=== PATIENT | male | born 1935 | race Caucasian/White ===

== ENCOUNTER → 2019-02-09 14:16 | Outpatient (CLI) | payer MEDICARE, SELFPAY ==
--- NOTE | 2019-02-09 | DI.RAD.S_ITS ---
PROCEDURE: XR CHEST 2V INDICATIONS: COUGH TECHNIQUE: 2 views of the chest were acquired. COMPARISON: [facility], , CHEST 1 VIEW, 02/08/2012, 21:10. FINDINGS: Surgical changes and devices: Cardiac pacemaking device and dual chamber leads appear in normal position, in this patient with what appears to be prior thoracolumbar junction region compression fractures in relatively acute angulation in that area of prior bone cement.. Lungs and pleura: Lungs are clear. No pleural effusions or pneumothorax. Mediastinum: Mediastinal contours are normal. Heart size is normal. Bones and chest wall: No suspicious bony abnormalities. Soft tissues appear unremarkable. IMPRESSION: Apparent normal positioning of the cardiac pacemaking device with dual chamber leads. No source of cough is found but the patient positioning is prominently kyphotic centered at the thoracolumbar junction. Dictated by: Rogelio Rothman M.D. on 02/09/2019 at 15:35 Approved by: Rogelio Rothman M.D. on 02/09/2019 at 15:37
== END ==
PROVIDERS: PCP Internal Medicine; Visit Provider Internal Medicine
DX: R05 Cough (principal); Z95.0 Presence of cardiac pacemaker
CPT/HCPCS: 71046

== ENCOUNTER → 2019-02-21 15:36 | Outpatient (CLI) | payer MEDICARE, SELFPAY ==
[2019-02-21 16:24] LABS: B Type Natriuretic Peptide < 100 (<100)
[2019-02-21 16:46] LABS: Blood Urea Nitrogen 24 mg/dL (9-20); Calcium 9.2 mg/dL (8.4-10.2); Carbon Dioxide 30 mmol/L (22-32); Chloride 99 mmol/L (98-107); Estimated Glomerular Filt Rate > 60.0 mL/min (>60); Glucose 100 mg/dL (80-110); HEMOLYSIS 18 (0-50); Magnesium 2.1 mg/dL (1.6-2.3); Potassium 5.1 mmol/L (3.4-5.1); Sodium 139 mmol/L (137-145)
== END ==
PROVIDERS: Family Provider Internal Medicine; PCP Internal Medicine; Visit Provider Internal Medicine
DX: I50.9 Heart failure, unspecified (principal); I48.91 Unspecified atrial fibrillation; I48.0 Paroxysmal atrial fibrillation
CPT/HCPCS: 36415; 80048; 83735; 83880

== ENCOUNTER → 2019-04-03 11:48 | Outpatient (CLI) | payer MEDICARE, SELFPAY ==
[2019-04-03 12:14] LABS: Add Manual Diff / Slide Review NO; Basophils Absolute Auto 100 /uL (0-100); Basophils Percent Auto 0.6 % (0-2); Eosinophils Absolute Auto 100 /uL (0-450); Eosinophils Percent Auto 1.2 % (2-4); Hematocrit 44.7 % (41-53); Hemoglobin 14.9 g/dL (13.5-17.5); Lymphocytes Absolute Auto 700 /uL (1100-4500); Lymphocytes Percent Auto 7.4 % (25-40); Mean Corpuscular HGB Conc 33.2 % (30-36); Mean Corpuscular Hemoglobin 30.5 PG (26-34); Mean Corpuscular Volume 91.6 fL (80-100); Monocytes Absolute Auto 1400 /uL (0-900); Monocytes Percent Auto 13.5 % (3-14); Neutrophils Absolute Auto 7800 /uL (1500-7000); Neutrophils Percent Auto 77.3 % (50-75); Platelet Count 310 X10^3/uL (150-400); Red Blood Cell Count 4.88 X10^6/uL (4.5-5.9); Red Cell Distribution Width 14.1 % (11.6-14.8); White Blood Cell Count 10.1 X10^3/uL (4.5-11.0)
[2019-04-03 12:33] LABS: BUN Creatinine Ratio 19.1 (6-22); Blood Urea Nitrogen 21 mg/dL (9-20); Calcium 9.4 mg/dL (8.4-10.2); Carbon Dioxide 35 mmol/L (22-32); Chloride 95 mmol/L (98-107); Cholesterol 169 mg/dL (140-199); Estimated Glomerular Filt Rate > 60.0 mL/min (>60); Glucose 106 mg/dL (80-110); HDL Cholesterol 39 mg/dL (40-60); HEMOLYSIS < 15 (0-50); LDL Cholesterol Calculated 101 mg/dL (<100); Potassium 5.1 mmol/L (3.4-5.1); Sodium 138 mmol/L (137-145); Triglycerides 147 mg/dL (35-150)
== END ==
PROVIDERS: PCP Internal Medicine; Visit Provider Nurse Practitioner
DX: R06.02 Shortness of breath (principal); R04.0 Epistaxis; I10 Essential (primary) hypertension; I50.32 Chronic diastolic (congestive) heart failure; R06.1 Stridor
CPT/HCPCS: 36415; 80048; 80061; 85025

== ENCOUNTER → 2019-04-17 11:51 | Outpatient (CLI) | payer MEDICARE, SELFPAY ==
[2019-04-17 13:29] LABS: Alanine Aminotransferase 28 IU/L (21-72); Albumin 4.1 g/dL (3.5-5.0); Albumin Globulin Ratio 1.2 (1.0-2.8); Alkaline Phosphatase 98 U/L (38-126); Aspartate Aminotransferase 30 IU/L (17-59); BUN Creatinine Ratio 24.2 (6-22); Bilirubin Total 0.7 mg/dL (0.2-1.3); Blood Urea Nitrogen 29 mg/dL (9-20); Calcium 9.5 mg/dL (8.4-10.2); Carbon Dioxide 35 mmol/L (22-32); Chloride 95 mmol/L (98-107); Cholesterol 154 mg/dL (140-199); Globulin 3.5 g/dL (1.7-4.1); Glucose 99 mg/dL (80-110); HDL Cholesterol 34 mg/dL (40-60); HEMOLYSIS < 15 (0-50); LDL Cholesterol Calculated 86 mg/dL (<100); Sodium 139 mmol/L (137-145); Total Protein 7.6 g/dL (6.3-8.2); Triglycerides 171 mg/dL (35-150)
[2019-04-17 13:32] LABS: Potassium 5.7 mmol/L (3.4-5.1)
[2019-04-17 17:00] LABS: Thyroid Stimulating Hormone 2.14 uIU/mL (0.47-4.68)
== END ==
PROVIDERS: PCP Internal Medicine; Visit Provider Internal Medicine Cardiovascular Disease
DX: I10 Essential (primary) hypertension (principal); I70.90 Unspecified atherosclerosis
CPT/HCPCS: 36415; 80053; 80061; 84443

== ENCOUNTER → 2019-04-20 12:31 | Outpatient (CLI) | payer MEDICARE, SELFPAY ==
--- NOTE | 2019-04-27 16:02 | PM.PFT.1 ---
Pulmonary Function Test Referral & Results Date Patient Seen: 04/20/19 Requesting provider: Theron Lima Results: The spirometry demonstrates an FVC of 2.14 L which is 56% of predicted. The FEV1 was measured at 1.51 L which is 56% of predicted. The FEV1/FVC ratio was 70 which is 99% of predicted. Following the administration of bronchodilator there was a 49% improvement in FEF 25-75% Lung volumes show an SVC of 2.15 L which is 50% of predicted. The diffusing capacity was measured at 15.91 which is 51% of predicted. No hemoglobin value was provided, so no correction for potential anemia could be made, if appropriate. The maximum voluntary ventilation was reduced Interpretation: This study demonstrates moderate obstructive lung disease with some limited evidence of benefit following bronchodilator particularly small airway flow based on improvement in FEF 25-75% There is more significant restrictive lung disease present based on reduction SVC There is also significant reduction in diffusing capacity suggesting significant disease of the capillary alveolar level Clinical correlation suggested
== END ==
PROVIDERS: PCP Internal Medicine; Visit Provider Internal Medicine Cardiovascular Disease
DX: R06.02 Shortness of breath (principal); J98.8 Other specified respiratory disorders
CPT/HCPCS: 94060; 94726; 94729

== ENCOUNTER → 2019-04-23 11:51 | Outpatient (CLI) | payer MEDICARE, SELFPAY ==
[2019-04-23 13:03] LABS: BUN Creatinine Ratio 26.5 (6-22); Blood Urea Nitrogen 45 mg/dL (9-20); Calcium 9.6 mg/dL (8.4-10.2); Carbon Dioxide 33 mmol/L (22-32); Chloride 94 mmol/L (98-107); Estimated Glomerular Filt Rate 38.8 mL/min (>60); Glucose 85 mg/dL (80-110); HEMOLYSIS < 15 (0-50); Potassium 4.7 mmol/L (3.4-5.1); Sodium 137 mmol/L (137-145)
== END ==
PROVIDERS: Visit Provider Internal Medicine Cardiovascular Disease
DX: E87.6 Hypokalemia (principal)
CPT/HCPCS: 36415; 80048

== ENCOUNTER → 2019-05-01 11:18 | Outpatient (CLI) | payer MEDICARE, SELFPAY ==
[2019-05-01 14:16] LABS: BUN Creatinine Ratio 20.7 (6-22); Blood Urea Nitrogen 29 mg/dL (9-20); Calcium 10.2 mg/dL (8.4-10.2); Carbon Dioxide 32 mmol/L (22-32); Chloride 94 mmol/L (98-107); Estimated Glomerular Filt Rate 48.5 mL/min (>60); Glucose 92 mg/dL (80-110); HEMOLYSIS < 15 (0-50); Potassium 5.1 mmol/L (3.4-5.1); Sodium 137 mmol/L (137-145)
== END ==
PROVIDERS: Visit Provider Internal Medicine Cardiovascular Disease
DX: I10 Essential (primary) hypertension (principal)
CPT/HCPCS: 36415; 80048

== ENCOUNTER → 2019-05-21 13:36 | Outpatient (CLI) | payer MEDICARE, SELFPAY ==
--- NOTE | 2019-05-21 | DI.ECHO.S_ITS ---
[facility]---------+ [facility] +---------+ : : [address] : : : : [id number] : : : : Phone: [phone] Echocardiogram Report + + :Name: ROS STUART Study Date: 05/21/2019 Height: 70 in : :[facility] Location: [facility] Weight: 221 lb : : Gender: Male BSA: 2.2 m2 : :: 1935 Age: 84 yrs BP: 121/71 mmHg: :Reason For Study: SOB : :Ordering Physician: Theron : :Jomar Lima Performed By: Claire Page : + + Interpretation Summary The ejection fraction is estimated to be 50-55%. There are no obvious focal wall motion abnormalities noted but poor endocardial definition reduces the sensitivity for the detection of such. Left ventricular systolic function has significantly improved compared to the previous exam. There is no significant valvular heart disease. Procedure: A two-dimensional transthoracic echocardiogram with color flow and Doppler was performed. The study quality was technically difficult. Comparison is made with the echocardiogram of 03/09/2012. Definity was not used because the DI nurse was not able to start an IV on this patient. The patient had difficulty tolerating and participating in the exam. The patient has a paced rhythm. Left Ventricle: The left ventricle is normal in size. Left ventricular systolic function is probably normal. The ejection fraction is estimated to be 50-55%. Left ventricular systolic function has significantly improved compared to the previous exam. There are no obvious focal wall motion abnormalities noted but poor endocardial definition reduces the sensitivity for the detection of such. Diastolic function could not be accurately assessed due to paced rhythm. Right Ventricle: The right ventricle is not well visualized. The right ventricle is grossly normal size. There is a pacemaker lead in the right ventricle. Right ventricular systolic function is mildly reduced. Atria: The left atrial size is normal. The right atrium grossly appears normal in size. There is no Doppler evidence for an interatrial shunt. Mitral Valve: The mitral valve is normal in structure and function. There is trace mitral regurgitation. Aortic Valve: The aortic valve is trileaflet. The aortic valve opens well. There is trace aortic regurgitation. Tricuspid Valve: The tricuspid valve is normal in structure and function. There is mild tricuspid regurgitation. Pulmonary artery pressures cannot be estimated because of the lack of a measurable TR jet velocity. Pulmonic Valve: The pulmonic valve is not well visualized. There is trace pulmonic regurgitation. Great Vessels: The aortic root is mildly dilated. The ascending aorta could not be visualized. The pulmonary artery is not well visualized, but is probably normal size. The inferior vena cava was not visualized. Pericardium/ Pleura There is no pericardial effusion. There is no pleural effusion. MMode/2D Measurements & Calculations LVIDd: 5.2 cm LVOT diam: 2.1 cm LVIDs: 3.0 cm Ao root diam: 3.9 cm FS: 42.6 % asc Aorta Diam: 4.3 cm IVSd: 0.74 cm LVPWd: 0.82 cm LV ventura. diameter/BSA (cm/m^2): 2.4 LV sys. diameter/BSA (cm/m^2): 1.4 LA A2 area: 19.3 cm2 RA long axis: 5.1 cm LA A4 area: 24.2 cm2 RA area: 15.2 cm2 LA length (vol): 7.3 cm RA vol: 38.5 ml LA vol: 54.3 ml RA : 17.7 ml/m2 LA vol index: 24.9 ml/m2 Doppler Measurements & Calculations LVOT Max Beau: 85.5 cm/sec MV E max beau: 43.8 cm/sec LV V1 max P.9 mmHg MV A max beau: 68.0 cm/sec LV V1 VTI: 14.3 cm MV E/A: 0.65 Med Peak E' Beau: 4.6 cm/sec E/E' med: 9.4 Lat Peak E' Beau: 8.2 cm/sec E/E' lat: 5.4 E/e' average: 7.4 MV P1/2t: 90.1 msec TR max beau: 238.6 cm/sec MV P1/2t max beau: 43.8 cm/sec TR max P.8 mmHg MVA(P1/2t): 2.4 cm2 PA V2 max: 48.7 cm/sec PA V2 mean: 34.5 cm/sec PA mean P.52 mmHg PA Accel Time: 0.10 sec SV(LVOT): 51.3 ml Reading Physician:12:36 PM
--- NOTE | 2019-05-21 | DI.NM.S_ITS ---
PROCEDURE: NM FER PERF SPECT R&S PHARM Rest and pharmacological stress myocardial perfusion SPECT with gated imaging during rest and not stress and ejection fraction at rest RADIOPHARMACEUTICAL: 28.5 mCi Tc-99m tetrafosmin IV at rest and 24.6mCi Tc-99m tetrafosmin IV at peak effect of pharmacological stress. [id number] was performed. INDICATIONS: Shortness of breath TECHNIQUE: Radiopharmaceutical was injected at peak stress test, and also at rest. SPECT images were obtained. SPECT myocardial perfusion images were displayed in short axis, horizontal long axis, and vertical long axis views. Gated images were reviewed using uControl software, at rest only. COMPARISON: None. CARDIAC STRESS: A pharmacologic stress test was performed under the supervision of an attending staff, using an infusion of lexiscan . Hemodynamic data: There was no change in the heartrate with Lexiscan infusion. Symptoms: The patient denied anginal chest pain. Aminophylline: Not used. EKG: The EKG is nondiagnostic due to significant baseline artifact. FINDINGS: Raw data: There is good myocardial uptake of radiotracer. There is significant interfering subdiaphragmatic activity. No significant motion artifacts. However, the patient could not raise arms and images were obtained with arms on sides. Dguo-ex-rrmfn ratio is 0.31 (normal is less than 0.38 for tetrafosmin tracer). Left ventricle function: Gated images demonstrate normal left ventricular wall thickening at rest with interfering activity at basilar inferior wall. . Left ventricle resting end diastolic volume is 76 mL. Left ventricle rest ejection fraction is 63% ; normal range is above 45%. Myocardial perfusion: There is a moderate size, mild perfusion defect in the basal inferior wall, both at rest and with activity. Unfortunately prone imaging could not be performed to rule out artifact. This quantifies to be more severe by software with SSS of 3 and SRS of 0. Visually it's present on both similarly. IMPRESSION: -Equivocal, poor quality study, indicating small scar versus artifact. -Given normal baseline LVEF and the small territory in question, overall this is probably a low risk study. -No gated images could be performed on stress imaging. -There is significant interfering subdiaphragmatic activity. The effect of this cannot be compared between the rest and stress images as there was 6 days gap between the two phases of this test; moreover, no prone imaging could be performed to correct for artifact. -Other limitation including no change in heart rate with vasodilator infusion, patient's inability to move arms and baseline artifact on ECG which makes it uninterpretable as above. Dictated by: Fox Sousa M.D. on 05/28/2019 at 18:42 Approved by: Fox Sousa M.D. on 05/28/2019 at 18:54
--- NOTE | 2019-05-21 14:49 | P.PCN_ITS ---
Cardiac Stress Test Report Referral & Results Date Patient Seen: 05/21/19 Requesting provider: Theron Lima Indication: Shortness of breath Rest ECG: Unremarkable Procedure Note: After both written and verbal informed consent the patient had an IV started by the diagnostic imaging RN, and then was hooked up to the treadmill monitoring system. The Lexiscan material, and then the Cardiolite tracer, were administered sequentially. An additional 3 min was spent monitoring the patient while supine on the gurney. Patient reported some stinging and discomfort with the injection of the Lexiscan material as well as the Cardiolite tracer. There was concern that the IV may not be correctly placed and so only 1/2 of the dose of the Cardiolite was administered. Patient did not experience any symptoms at all or side effects to suggest the Lexiscan was administered. Careful examination of the antecubital site where his IV had been placed did not show any evidence of obvious extravasation of any material. The patient had a normal response to all infused materials. Patient will be placed under the gamma camera to see if there is any uptake from the cardiac mu scle or whether not he will have to repeat this portion of the test Impression: See above. Please see perfusion imaging report for further details Please note: Actual ECG tracings can be found in the PACS system.
--- NOTE | 2019-05-28 11:50 | PM.TREADMILL ---
Cardiac Stress Test Report Referral & Results Date Patient Seen: 05/28/19 Requesting provider: Theron Lima Indication: Shortness of breath Rest ECG: Unremarkable Procedure Note: After both written and verbal informed consent the patient had an IV started by the diagnostic imaging RN, and then was hooked up to the treadmill monitoring system. The Lexiscan material, and then the Cardiolite tracer, were administered sequentially. An additional 3 min was spent monitoring the patient while supine on the gurney. The patient had a normal response to all infused materials. Impression: See perfusion imaging report for details regarding possible ischemia Please note: Actual ECG tracings can be found in the PACS system.
== END ==
PROVIDERS: PCP Internal Medicine; Visit Provider Internal Medicine Cardiovascular Disease
DX: I07.1 Rheumatic tricuspid insufficiency (principal); R06.02 Shortness of breath; Z95.0 Presence of cardiac pacemaker
CPT/HCPCS: 78452; 93016; 93017; 93018; 93306; A9502; J2785

== ENCOUNTER → 2019-08-14 14:08 | Outpatient (CLI) | payer MEDICARE, SELFPAY ==
[2019-08-14 15:31] LABS: Alanine Aminotransferase 46 IU/L (<50); Albumin 3.9 g/dL (3.5-5.0); Albumin Globulin Ratio 1.1 (1.0-2.8); Alkaline Phosphatase 95 U/L (38-126); Aspartate Aminotransferase 42 IU/L (17-59); BUN Creatinine Ratio 15.6 (6-22); Bilirubin Total 0.5 mg/dL (0.2-1.3); Blood Urea Nitrogen 25 mg/dL (9-20); Calcium 9.4 mg/dL (8.4-10.2); Carbon Dioxide 32 mmol/L (22-32); Chloride 96 mmol/L (98-107); Estimated Glomerular Filt Rate 41.6 mL/min (>60); Globulin 3.5 g/dL (1.7-4.1); Glucose 91 mg/dL (80-110); HEMOLYSIS 30 (0-50); Potassium 4.9 mmol/L (3.4-5.1); Sodium 136 mmol/L (137-145); Total Protein 7.4 g/dL (6.3-8.2)
[2019-08-14 19:57] LABS: Thyroid Stimulating Hormone 1.55 uIU/mL (0.47-4.68)
== END ==
PROVIDERS: Visit Provider Internal Medicine Cardiovascular Disease
DX: Z79.899 Other long term (current) drug therapy (principal)
CPT/HCPCS: 36415; 80053; 84443

== ENCOUNTER → 2019-08-23 10:31 | Outpatient (CLI) | payer MEDICARE, SELFPAY ==
--- NOTE | 2019-08-31 16:29 | PM.PFT.1 ---
Pulmonary Function Test Referral & Results Date Patient Seen: 08/23/19 Requesting provider: Theron Lima Results: The spirometry demonstrates an FVC of 2.23 L which is 59% of predicted. The FEV1 was measured at 1.62 L which is 60% of predicted. The FEV1/FVC ratio was 72 which is 101% of predicted. Following the administration of bronchodilator there was a 25% improvement in FEF 25-75%. Lung volumes show an SVC of 2.16 L which is 51% of predicted. The diffusing capacity was measured at 17.17 which is 55% of predicted. No hemoglobin value was provided, so no correction for potential anemia could be made, if appropriate. The maximum voluntary ventilation was reduced Interpretation: This study demonstrates moderate obstructive lung disease based on reduction FEV1 and there is some limited evidence of benefit following bronchodilator particularly small airway flow based on improvement in FEF 25-75% There is also moderate restrictive lung disease present based on reduction SVC There is also moderate reduction in diffusing capacity suggesting disease at the capillary alveolar level Compared to PFTs performed in April 2019, current spirometry is essentially unchanged as is diffusing capacity
== END ==
PROVIDERS: PCP Internal Medicine; Referring Provider Internal Medicine; Visit Provider Internal Medicine Cardiovascular Disease
DX: R06.02 Shortness of breath (principal); J98.8 Other specified respiratory disorders
CPT/HCPCS: 94060; 94726; 94729

== ENCOUNTER → 2019-09-04 13:34 | Outpatient (CLI) | payer MEDICARE, SELFPAY | PROVIDERS: PCP Internal Medicine; Referring Provider Internal Medicine; Visit Provider Internal Medicine | DX: M81.0 Age-related osteoporosis without current pathological fracture (principal) | CPT/HCPCS: 77080 ==

== ENCOUNTER 2019-09-08 23:09 | Inpatient (IN) | payer MEDICARE, SELFPAY ==
[2019-09-08 23:25] VITALS: BP 139/76; PULSE 76; RESP 22; TEMP 36.3; O2SAT 92; BMI 31.5
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
--- NOTE | 2019-09-08 23:50 | DI.RAD.S_ITS ---
PROCEDURE: XR CHEST 1V INDICATIONS: abdominal pain TECHNIQUE: One view of the chest was acquired. COMPARISON: [facility], CT, CT ABDOMEN PELVIS WO CON, 09/09/2019, 1:00. [facility], CR, XR CHEST 2V, 02/09/2019, 14:19. FINDINGS: Surgical changes and devices: There is a cardiac pacemaker.. Lungs and pleura: The patient atelectasis. No pleural effusions or pneumothorax. Mediastinum: Mediastinal contours appear normal. Heart size is normal. Bones and chest wall: No suspicious bony lesions. Overlying soft tissues appear unremarkable. Kyphoplasties. IMPRESSION: No acute cardiopulmonary disease. Dictated by: Michelle Noble M.D. on 09/09/2019 at 6:39 Approved by: Michelle Noble M.D. on 09/09/2019 at 6:41
--- NOTE | 2019-09-08 23:50 | DI.RAD.S_ITS ---
PROCEDURE: XR ABDOMEN 1V INDICATIONS: no BM for a week TECHNIQUE: One view of the abdomen acquired. COMPARISON: [facility], CR, XR CHEST 1V, 09/08/2019, 23:57. [facility], CR, CHEST 1 VIEW, 02/08/2012, 21:10. FINDINGS: Surgical changes and devices: None. Bowel: Moderate amount of stool in colon. There is abundant colonic gas. Soft tissues: No suspicious abdominal calcifications. Visualized solid organ contours appear normal in size. Bones: Ultiple compression fractures and kyphoplasties. Severe osteopenia. IMPRESSION: Nonobstructive bowel gas pattern. Moderate amount of stool in colon. Dictated by: Michelle Noble M.D. on 09/09/2019 at 6:41 Approved by: Michelle Noble M.D. on 09/09/2019 at 6:45
[2019-09-09] VITALS (17 sets, daily range): BP systolic 98–146; BP diastolic 50–72; PULSE 59–88; RESP 16–30; TEMP 36.9–37.5; O2SAT 90–95; BMI 31.5
--- NOTE | 2019-09-09 | DI.RAD.S_ITS ---
PROCEDURE: XR THORACIC SPINE 3V INDICATIONS: T-10 FRACTURE TECHNIQUE: 3 views of the thoracic spine were acquired. COMPARISON: [facility], CT, CT THORACIC SPINE WO [facility], 09/09/2019, 14:13. [facility], CT, CT ABDOMEN PELVIS WO [facility], 09/09/2019, 1:00. FINDINGS: Bones: Motion artifact on the lateral view limits evaluation of the bones. However, there does appear to be a fracture along the anterior margin of the T10 vertebral body and with splaying of the anterior portion of the vertebral body. Multiple compression deformities of the imaged thoracolumbar spine are present. There are kyphoplasty/vertebroplasty changes present. Soft tissues: No paravertebral stripe thickening. IMPRESSION: Unusual fracture of the T10 vertebral body. A pathologic fracture is difficult to exclude. Dictated by: Yovani Motta M.D. on 09/09/2019 at 14:14 Approved by: Yovani Motta M.D. on 09/09/2019 at 14:16
[2019-09-09 00:01] LABS: Add Manual Diff / Slide Review NO; Basophils Absolute Auto 0 /uL (0-100); Basophils Percent Auto 0.2 % (0-2); Eosinophils Absolute Auto 0 /uL (0-450); Hematocrit 44.2 % (41-53); Hemoglobin 14.7 g/dL (13.5-17.5); Lymphocytes Absolute Auto 300 /uL (1100-4500); Lymphocytes Percent Auto 1.6 % (25-40); Mean Corpuscular HGB Conc 33.2 % (30-36); Mean Corpuscular Hemoglobin 31.3 PG (26-34); Mean Corpuscular Volume 94.3 fL (80-100); Monocytes Absolute Auto 1700 /uL (0-900); Monocytes Percent Auto 9.1 % (3-14); Neutrophils Absolute Auto 16800 /uL (1500-7000); Neutrophils Percent Auto 89.1 % (50-75); Platelet Count 238 X10^3/uL (150-400); Red Blood Cell Count 4.69 X10^6/uL (4.5-5.9); Red Cell Distribution Width 14.3 % (11.6-14.8); White Blood Cell Count 18.8 X10^3/uL (4.5-11.0)
[2019-09-09 00:06] LABS: Alanine Aminotransferase 26 IU/L (<50); Albumin 4.3 g/dL (3.5-5.0); Albumin Globulin Ratio 1.2 (1.0-2.8); Alkaline Phosphatase 106 U/L (38-126); Aspartate Aminotransferase 35 IU/L (17-59); BUN Creatinine Ratio 22.9 (6-22); Bilirubin Total 1.4 mg/dL (0.2-1.3); Blood Urea Nitrogen 32 mg/dL (9-20); Calcium 9.9 mg/dL (8.4-10.2); Carbon Dioxide 30 mmol/L (22-32); Chloride 95 mmol/L (98-107); Estimated Glomerular Filt Rate 48.5 mL/min (>60); Globulin 3.7 g/dL (1.7-4.1); Glucose 127 mg/dL (80-110); HEMOLYSIS 18 (0-50); Lipase 35 U/L (23-300); Sodium 134 mmol/L (137-145)
[2019-09-09 00:15] LABS: NT-proBNP (BNP-Adult 18+) 454 pg/mL (<450)
[2019-09-09 00:18] LABS: Troponin I < 0.012 ng/mL (0.01-0.034)
--- NOTE | 2019-09-09 00:50 | DI.CT.S_ITS ---
PROCEDURE: CT ABDOMEN PELVIS WO CON INDICATIONS: pain/distention/leukocytosis. GFR=48 TECHNIQUE: Noncontrast 5 mm thick sections acquired from the diaphragms to the symphysis. 5 mm coronal and sagittal reformats were then performed. For radiation dose reduction, the following was used: automated exposure control, adjustment of mA and/or kV according to patient size. COMPARISON: [facility], MR, L-SPINE WITH AND WITHOUT CONTR, 01/20/2012, 7:59. [facility], CR, L-SPINE 2-3 VIEWS, 02/09/2012, 16:35. [facility], CT, PE STUDY (CTA CHEST), 02/08/2012, 22:36. [facility], CR, XR CHEST 1V, 09/08/2019, 23:57. [facility], CR, XR ABDOMEN 1V, 09/08/2019, 23:57. FINDINGS: Image quality: Excellent. ABDOMEN: Lung bases: Bibasilar atelectasis. Heart size is mildly increased. There is a cardiac pacemaker. There is a cardiac pacemaker. Fat stranding around the descending aorta and aortic hiatus. Solid organs: There is a 1 cm cyst in the left hepatic lobe. Liver is normal in size. Gallbladder contains gallstones. There is subtle stranding of the gallbladder. Pancreas is normal in contours. Spleen is normal in size. No adrenal nodules. Kidneys are normal in size, without hydronephrosis or nephrolithiasis. There is a 6.3 cm parapelvic cyst in left kidney. Peritoneum and bowel: There numerous colonic diverticula. No CT findings to suggest acute diverticulitis. Unenhanced bowel loops demonstrate normal wall thickness and caliber. No free fluid or air. Nodes and vessels: No retroperitoneal or mesenteric adenopathy by size criteria. Aorta and inferior vena cava are normal in caliber. Miscellaneous: No ventral hernias. PELVIS: Genitourinary: Bladder wall thickness is normal. Small bladder diverticula are present. There is mild bladder wall thickening. Small bladder calculi independent bladder lumen. Enlarged prostate. Miscellaneous: No inguinal adenopathy. There is a fat-containing right inguinal hernia. Bones: Vertebral fracture at T10 may be acute. There are multiple chronic vertebral body compression fractures, severe at T7, T12, L1, and L5, moderate or mild at multiple other levels. Kyphoplasty at L1 and L5. Severe osteopenia. Severe degenerative disc and facet disease causing Central Canal stenosis. IMPRESSION: 1. Gallbladder contains gallstones. There is subtle stranding of the gallbladder suggesting early acute cholecystitis. 2. Small bladder calculi independent bladder lumen. There is mild bladder wall thickening, which may be secondary to cystitis or bladder outlet obstruction. 3. Scattered diverticula. 4. Enlarged prostate. 5. Suscept acute fracture of T10. There is prevertebral soft tissue stranding in the level of aortic hiatus. A small amount of fluid in the area is most likely a hematoma. 6. Multiple mid compression fractures as described. Dictated by: Michelle Noble M.D. on 09/09/2019 at 6:08 Transcribed by: ARTEMIO on 09/09/2019 at 6:28 Approved by: Michelle Noble M.D. on 09/09/2019 at 6:38
[2019-09-09] MEDS: ONDANSETRON 4 MG/2 ML INJ IV (01:21)
[2019-09-09] MEDS: SODIUM CHLORIDE 0.9% 1,000 ML 1000 ML IV (01:21)
[2019-09-09] MEDS: HYDROMORPHONE 1 MG INJ IV (01:21)
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
[2019-09-09 04:32] LABS: Appearance Urine UA CLEAR; Bilirubin Urine UA NEGATIVE (NEGATIVE); Glucose Urine UA NEGATIVE (Negative); Ketones Urine UA NEGATIVE (NEGATIVE); Leukocyte Esterase Urine UA TRACE (NEGATIVE); Nitrite Urine UA NEGATIVE (Negative); Occult Blood Urine UA NEGATIVE (Negative); Protein Urine UA TRACE (Negative); Urobilinogen Urine UA 0.2 E.U./dL (0.2)
[2019-09-09 04:33] LABS: Color Urine UA Dark Yellow; RBC Urine 0-1/HPF (0-5/HPF); Squamous Epithelial Cell Urine 0-1 /HPF (0-5/HPF); WBC Urine 0-1/HPF (0-5/HPF)
[2019-09-09 04:34] LABS: Bacteria Urine Few (2-10); Culture Indicated Urine Specimen Cultured; Hyaline Casts Urine 5-10/LPF; Mucus Urine 1+ (Negative)
[2019-09-09 04:45] LABS: Magnesium 2.1 mg/dL (1.6-2.3)
[2019-09-09 05:03] LABS: Procalcitonin 0.06 ng/mL (<0.5)
[2019-09-09] MEDS: SODIUM CHLORIDE 0.9% 1,000 ML 125 ML IV ×2 (05:15→12:20)
[2019-09-09] MEDS: FLEETS ENEMA 1 EACH PR (05:30)
[2019-09-09] MEDS: HYDROMORPHONE 1 MG INJ 0.5 MG IV (05:43)
--- NOTE | 2019-09-09 06:24 | PC.NURSE ---
99 kg was ED WEIGHT WITH ZEROED BED NEW WEIGHT 96.2
--- NOTE | 2019-09-09 06:34 | PC.NURSE ---
Pt admitted to unit around 044 as Alert and Oriented x2; thought the year was 1999 but knew who the president was and all other neuro questions. He appears forgetful as well, and hard to grab his attention 84% on Room air, SOB/DOSS; placed on 2L NC at 99%; lungs clear Belly is distended, firm, tender. Active bowel tones, pt reports passing gas. He was admitted to floor with a small/smear soft brown BM. 0.5mg IV Dilaudid given for sharp RUQ pain that he somes comes and goes in spurts but feels like a knife burning him when it comes. Incontinent of urine, peed in brief. Enema given this morning with no results. Got patient on a BSC which i would not suggest doing again until pt is stronger bc he did not do well getting to commode at all. He says at home he has a FWW and cane that he doesn't use enough. Skin is okay, scattered bruises and abrasions throughout. Bandaid from fall on left knee and right wrist. Scar on abdomen. Lots of varicose veins on arms. B/L SCDs placed on Tele: AFib
[2019-09-09] MEDS: ACETAMINOPHEN 325 MG TABLET 975 MG PO ×3 (06:49→21:00)
--- NOTE | 2019-09-09 09:03 | PC.NURSE ---
Addendum entered by Belgica Rogers R.N. 09/09/19 14:08: Pt's Radha took back pt's home medications listed prior. All 5 bottles of meds. Addendum entered by Belgica Rogers R.N. 09/09/19 12:23: Pt was placed on Oximask by RT this AM, switched to 5L NC at 1220 so pt can eat lunch. O2 sat 92%. Addendum entered by Belgica Rogers R.N. 09/09/19 12:05: Pt OOB with PT-2P max assist OOB to chair, chair alarm on. Pt inc small amount of urine, had moderate formed hard ball brown BM with 3 small pebble like. few drops of blood noted in BSC, upon wiping had one episode of blood on wipe. Barrier cream applied. Pt's Radha in room as well. Addendum entered by Belgica Rogers R.N. 09/09/19 11:29: Per Dr. Ivy and Dr. Triplett at 1125, discontinue Xarelto. Dr's aware this RN held this morning awaiting for Ortho consult. Therefore Xarelto was not given today. Addendum entered by Belgica Rogers R.N. 09/09/19 09:14: RN Coordinator Mack, retrieved pt's belongings from ED including a cell phone and churner that is placed in pt's room. 5 med bottles of Xarelto, Atvorstatin, Lisinopril, Metoprolol, Amiodarone send to pharmacy until pt discharges. Original Note: Day Shift- 1 tablet marked Tylenol 325/Hospital found by [employer] on pt's chest on gown. Pt did receive Scheduled Tylenol dose this AM. RT in to see pt, Pt mouth breaths, O2 NC placed in mouth, O2 NC to 4L, O2 sat 94-95%. On continuous O2 monitoring. High fall risk precautions in place, bed alarm on. BLE Calf SCD's on.
[2019-09-09] MEDS: BISACODYL 10 MG SUPP PR (09:35)
[2019-09-09] MEDS: METOPROLOL ER 50 MG TABLET PO (09:46)
[2019-09-09] MEDS: AMIODARONE 200 MG TABLET PO (09:46)
[2019-09-09] MEDS: ATORVASTATIN 20 MG TABLET PO (09:46)
--- NOTE | 2019-09-09 10:36 | RT ---
Placed the patient on an oxymask. He was desaturating on 4-5 L via nasal cannula because he was mouth breathing. Once placed on the oxymask at 5L the patient's saturations improved to 92%.
--- NOTE | 2019-09-09 12:11 | DI.CT.S_ITS ---
PROCEDURE: CT THORACIC SPINE WO CON INDICATIONS: T10 fracture TECHNIQUE: Noncontrast 3 mm thick sections acquired through the region of interest in the thoracic spine. Sagittal and coronal reformats were then constructed. For radiation dose reduction, the following was used: automated exposure control. COMPARISON: [facility], CT, CT ABDOMEN PELVIS WO CON, 09/09/2019, 1:00. [facility], CR, XR CHEST 2V, 02/09/2019, 14:19. [facility] [place], CR, SPINE THORACOLUMBAR 2VW, 03/27/2014, 15:45. FINDINGS: Image quality: Diagnostic. Bones: Straightening of the normal lumbar lordosis is identified. A fracture involving the T10 vertebral body is identified in along the anterior margin of the vertebral body with associated widening at the anterior fracture line. No definite retropulsion is identified. Soft tissue attenuation at the fracture site is evident within the bone, which may represent hematoma. Kyphoplasty/vertebroplasty changes are noted involving the T3, T4, T6, and L1 vertebral bodies. Prominent anterior wedging is evident involving the T7 vertebral body with approximately 60% anterior vertebral height loss. A similar appearance is noted involving the T12 vertebral body with approximately 80% anterior vertebral height loss. Alignment is unchanged since the prior CT. Soft tissues: No paravertebral masses or hematomas. Visualized posteromedial lungs appear clear. Small bilateral effusions are present. There is aortic atherosclerosis. Low attenuation lesion within the region of the caudate lobe of the liver is present. There is also probable cyst involving the intra-margin of the left kidney. IMPRESSION: 1. Age indeterminate irregular fracture involving the T10 vertebral body with associated anterior vertebral widening without significant retropulsion. A pathologic fracture cannot be excluded. 2. No additional acute fractures are appreciated. 3. Vertebral plasty/kyphoplasty changes are present at multiple levels involving the thoracic and lumbar spine. Dictated by: Yovani Motta M.D. on 09/09/2019 at 13:35 Approved by: Yovani Motta M.D. on 09/09/2019 at 13:41
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
[2019-09-09 12:15] LABS: Add Manual Diff / Slide Review NO; Basophils Absolute Auto 100 /uL (0-100); Basophils Percent Auto 0.4 % (0-2); Eosinophils Absolute Auto 0 /uL (0-450); Hematocrit 40.6 % (41-53); Hemoglobin 13.5 g/dL (13.5-17.5); Lymphocytes Absolute Auto 500 /uL (1100-4500); Lymphocytes Percent Auto 3.2 % (25-40); Mean Corpuscular HGB Conc 33.2 % (30-36); Mean Corpuscular Hemoglobin 31.7 PG (26-34); Mean Corpuscular Volume 95.7 fL (80-100); Monocytes Absolute Auto 2300 /uL (0-900); Monocytes Percent Auto 14.1 % (3-14); Neutrophils Absolute Auto 13500 /uL (1500-7000); Neutrophils Percent Auto 82.3 % (50-75); Platelet Count 192 X10^3/uL (150-400); Red Blood Cell Count 4.25 X10^6/uL (4.5-5.9); Red Cell Distribution Width 14.7 % (11.6-14.8); White Blood Cell Count 16.4 X10^3/uL (4.5-11.0)
[2019-09-09 12:25] LABS: BUN Creatinine Ratio 25.4 (6-22); Blood Urea Nitrogen 33 mg/dL (9-20); Calcium 8.8 mg/dL (8.4-10.2); Carbon Dioxide 28 mmol/L (22-32); Chloride 99 mmol/L (98-107); Estimated Glomerular Filt Rate 52.9 mL/min (>60); Glucose 128 mg/dL (80-110); HEMOLYSIS < 15 (0-50); Potassium 4.7 mmol/L (3.4-5.1); Sodium 134 mmol/L (137-145)
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
--- NOTE | 2019-09-09 15:21 | CM.DANOTE ---
Discharge Planning/Care Management DCP: assessment: case received, EMR reviewed and met with pt. Introduced self and role. 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 Pt appeared very uncomfortable. Pt is an 84 year old who admitted early this morning to care of hospitalist team. Admission status: INPT: confirmed by UR RN Fabián Payer: Medicare [facility] PCP: Dr. Dru Chinchilla. Pt admitted with T10 compression fracture, reportedly occurring during DEXA scan on 09/06. He has had severe pain, marked decline in his functional mobility and inability to have BM since that time. PT did see pt today and OT order is obtained. PT recomendation is snf rehab vs home 07/02 assist and HH. Pt says he is certain he will need rehab after the hospital stay. Snf choice list: discussed: Pt has been at [facility]now [facility] and wishes referral place. Referral given to weekend liaison, face sheet efaxed to [facility] and Josette will be on tomorrow to review and confirm acceptance. P: as this point: [facility] CR: 09/12 or > PASRR will be needed. CM Discharge Assessment Start: 09/09/19 15:18 Freq: Status: Active Protocol: Document 09/09/19 15:18 ITV (Rec: 09/09/19 15:21 ITV [id number]) Discharge Planning Assessment Advance Directives? Yes History Provided By Patient,Medical Record Prior Living Arrangements House Household Members spouse Independent with ADL's No Is patient alert and oriented? Yes Patient/Family Preference [facility] Facility White board Updated in Patient Room with Yes name and ext. 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
--- NOTE | 2019-09-09 17:36 | PM.PN.1 ---
Subjective Subjective Date Patient Seen: 09/09/19 Exam Vital Signs (past 8 hours): - 09/09/19 23:00 09/10/19 00:05 09/10/19 04:42 Temperature 98.9 F 99.7 F H Pulse Rate 59 L 61 Respiratory Rate 16 18 Blood Pressure 127/65 143/74 H Pulse Oximetry 92 94 Oxygen Delivery Method Nasal Cannula Oxygen Flow Rate 5 Objective Labs Result Diagrams: 09/10/19 05:11 09/09/19 12:05 Labs: Laboratory Results - last 24 hr 09/09/19 09/09/19 09/10/19 12:05 12:05 05:11 WBC 16.4 H 14.7 H RBC 4.25 L 4.03 L Hgb 13.5 12.6 L Hct 40.6 L 39.0 L MCV 95.7 96.7 MCH 31.7 31.3 MCHC 33.2 32.4 RDW 14.7 14.3 Plt Count 192 171 Neut % (Auto) 82.3 H 82.9 H Lymph % (Auto) 3.2 L 3.2 L [place] % (Auto) 14.1 H 13.9 Eos % (Auto) 0.0 L 0.0 L Baso % (Auto) 0.4 0.0 Neut # (Auto) 65536 H 59255 H Lymph # (Auto) 500 L 500 L [place] # (Auto) 2300 H 2000 H Eos # (Auto) 0 0 Baso # (Auto) 100 0 Sodium 134 L Potassium 4.7 Chloride 99 Carbon Dioxide 28 BUN 33 H Creatinine 1.30 H Estimated GFR 52.9 L BUN/Creatinine Ratio 25.4 H Glucose 128 H Calcium 8.8 Assessment & Plan Assessment & Plan narrative: Brief progress note: The patient was seen and examined. Physical exam unchanged other than abdominal pain resolved and back pain controlled. Patient has had a large bowel movement since suppository and abdominal pain has resolved. Plan for small-bowel follow-through tomorrow. Patient's back pain is well controlled. Orthopedic surgery following and may consider kyphoplasty. Agree with admitting providers assessment and plan.
[2019-09-09] MEDS: NYSTATIN POWDER 15GM 1 APPLIC TOP (20:49)
[2019-09-10] VITALS (12 sets, daily range): BP systolic 109–155; BP diastolic 46–76; PULSE 61–81; RESP 18–22; TEMP 36.5–37.6; O2SAT 92–98; BMI 30.7
--- NOTE | 2019-09-10 | DI.RAD.S_ITS ---
PROCEDURE: XR T AND L SPINE 2 TO 3 VIEWS INDICATIONS: T7-L2 TLIF TECHNIQUE: 2 views acquired of the thoracolumbar spine. COMPARISON: [facility], CT, CT THORACIC SPINE WO CON, 09/09/2019, 14:13. [facility], CR, XR THORACIC SPINE 3V, 09/09/2019, 12:36. FINDINGS: Bones: Immediate postoperative examination with reference to prior CT scanning 09/09/19. There is vertebral body bone cement superiorly within T4 and T5, and bilateral vertical fixation rods with transverse pedicle screws have been placed at multiple levels along the thoracic spine and extending into the lumbar spine. Transverse pedicle screws are seen at T8, T9, T10, and T11. These are bilateral, and there is a gap at T12 where on prior CT scanning an anterior horizontal fracture through the T12 can be seen. The current study shows what appears to be bone cement material in that area, and reduction of the prior focal lordosis associated with the distracted anterior fracture margin. A final transverse pedicle screws at his present at L1. Soft tissues: No suspicious soft tissue calcifications. IMPRESSION: Reduction of lordosis has successfully been accomplished in an area of a horizontal fracture through T11, now brought into apposition with resolution of the lordosis by placement of multiple transverse pedicle screws and 2 bilateral thoracic/lumbosacral fixation rods. Bone cement is newly visualized within the T12 anterior fracture area. Prior bone cement more superiorly at T4, T5, and T7 is again seen. Dictated by: Rogelio Rothman M.D. on 09/11/2019 at 10:12 Approved by: Rogelio Rothman M.D. on 09/11/2019 at 10:24
[2019-09-10] MEDS: ACETAMINOPHEN 325 MG TABLET 975 MG PO (05:31)
--- NOTE | 2019-09-10 05:53 | PC.NURSE ---
Pt. confused, restless pain level 8-10/10 medicated with 975 mg. of Tylenol PO. Requested IV pain med. NAIMA Mercado notified ordered to give him Oxycodone per order. Did not sleep well last night, will monitor.
[2019-09-10] MEDS: OXYCODONE IR 5 MG TABLET PO (06:04)
[2019-09-10 06:10] LABS: Add Manual Diff / Slide Review NO; Basophils Absolute Auto 0 /uL (0-100); Eosinophils Absolute Auto 0 /uL (0-450); Hemoglobin 12.6 g/dL (13.5-17.5); Lymphocytes Absolute Auto 500 /uL (1100-4500); Lymphocytes Percent Auto 3.2 % (25-40); Mean Corpuscular HGB Conc 32.4 % (30-36); Mean Corpuscular Hemoglobin 31.3 PG (26-34); Mean Corpuscular Volume 96.7 fL (80-100); Monocytes Absolute Auto 2000 /uL (0-900); Monocytes Percent Auto 13.9 % (3-14); Neutrophils Absolute Auto 12200 /uL (1500-7000); Neutrophils Percent Auto 82.9 % (50-75); Platelet Count 171 X10^3/uL (150-400); Red Blood Cell Count 4.03 X10^6/uL (4.5-5.9); Red Cell Distribution Width 14.3 % (11.6-14.8); White Blood Cell Count 14.7 X10^3/uL (4.5-11.0)
[2019-09-10 06:22] LABS: Blood Urea Nitrogen 22 mg/dL (9-20); Calcium 8.5 mg/dL (8.4-10.2); Carbon Dioxide 30 mmol/L (22-32); Chloride 101 mmol/L (98-107); Estimated Glomerular Filt Rate > 60.0 mL/min (>60); Glucose 105 mg/dL (80-110); HEMOLYSIS < 15 (0-50); Magnesium 2.2 mg/dL (1.6-2.3); Potassium 4.2 mmol/L (3.4-5.1); Sodium 135 mmol/L (137-145)
[2019-09-10] MEDS: ATORVASTATIN 20 MG TABLET PO (09:18)
[2019-09-10] MEDS: METOPROLOL ER 50 MG TABLET PO (09:18)
[2019-09-10] MEDS: AMIODARONE 200 MG TABLET PO (09:19)
[2019-09-10] MEDS: ALBUTEROL 2.5 MG/3 ML NEB (ADULT) INH (09:24)
[2019-09-10] MEDS: SODIUM CHLORIDE 0.9% FLUSH 10 ML IV (09:25)
--- NOTE | 2019-09-10 09:27 | PC.NURSE ---
Patient oriented to self and situation at time, forgetful at times, easily reorients. Patient with wheezes throughout. Sats on 4L 92-94% patient short of breath. RT called and given treatment. at bedside. Bed alarm on.
[2019-09-10] MEDS: BISACODYL 10 MG SUPP PR (09:36)
[2019-09-10] MEDS: NYSTATIN POWDER 15GM 1 APPLIC TOP (09:37)
--- NOTE | 2019-09-10 10:07 | DI.RAD.S_ITS ---
PROCEDURE: XR CHEST 1V INDICATIONS: shortness of breath TECHNIQUE: One view of the chest was acquired. COMPARISON: [facility], CR, XR CHEST 1V, 09/08/2019, 23:57. FINDINGS: Surgical changes and devices: Pacemaker. Lungs and pleura: Developing pulmonary edema, development of small bilateral pleural effusions and left basilar atelectasis. Mediastinum: Mediastinal contours appear normal. Cardiomegaly. Bones and chest wall: No suspicious bony lesions. Previous percutaneous fixation of multiple vertebral fractures. Overlying soft tissues appear unremarkable. IMPRESSION: Congestive heart failure exacerbation. Dictated by: Ovi Pizarro M.D. on 09/10/2019 at 12:11 Approved by: Ovi Pizarro M.D. on 09/10/2019 at 12:13
--- NOTE | 2019-09-10 10:27 | OT.IPNOTE ---
Per nursing due to unstable fracture, pt is now bed rest. Therefore hold OT eval at this time.
--- NOTE | 2019-09-10 10:37 | PT-IP ANOTE ---
New bedrest order placed at 0824 this morning. Hold PT until further clarification or change in activity order.
[2019-09-10 10:43] LABS: Adenovirus Not Detected (Not Detect); Coronavirus 229E Not Detected (Not Detect); Coronavirus HKU1 Not Detected (Not Detect); Coronavirus NL 63 Not Detected (Not Detect); Coronavirus OC43 Not Detected (Not Detect); Human Metapneumovirus Not Detected (Not Detect); Human Rhinovirus/Enterovirus Not Detected (Not Detect); Influenza A Not Detected (Not Detect); Influenza B Not Detected (Not Detect); Parainfluenza Virus 1 Not Detected (Not Detect); Parainfluenza Virus 2 Not Detected (Not Detect)
[2019-09-10 10:44] LABS: Bordetella pertussis Not Detected (Not Detect); Chlamydophila pneumoniae Not Detected (Not Detect); Mycoplasma pneumoniae Not Detected (Not Detect); Parainfluenza Virus 3 Not Detected (Not Detect); Parainfluenza Virus 4 Not Detected (Not Detect); Respiratory Syncytial Virus Not Detected (Not Detect)
[2019-09-10] MEDS: FUROSEMIDE 40 MG/4 ML VIAL IV (11:08)
[2019-09-10] MEDS: MINERAL OIL 1 EACH ENEMA PR (11:08)
--- NOTE | 2019-09-10 11:23 | PM.PN.1 ---
Subjective Subjective Date Patient Seen: 09/10/19 Time Patient Seen: 11:23 Interval history: Pain moderate. Denies fever /chills. Denies bowel or bladder changes. No numbness and tingling bilateral lower extremities. Exam Vital Signs (past 8 hours): - 09/10/19 04:42 09/10/19 07:28 09/10/19 08:00 Temperature 99.7 F H 99.1 F Pulse Rate 61 66 Respiratory Rate 18 20 Blood Pressure 143/74 H 109/46 L Pulse Oximetry 95 92 09/10/19 09:18 09/10/19 09:24 09/10/19 11:22 Temperature Pulse Rate 61 61 Respiratory Rate 20 Blood Pressure Pulse Oximetry 97 96 Oxygen Delivery Method Nasal Cannula Oxygen Flow Rate 3 Narrative Exam Narrative: 84-year-old male resting comfortably in bed in no apparent distress. 5/5 strength with dorsiflexion, plantar flexion, great toe extension bilaterally. Sensation grossly intact to light touch bilateral lower extremities. Both legs are warm and dry. Objective Labs Result Diagrams: 09/10/19 05:11 09/10/19 05:11 Labs: Laboratory Results - last 24 hr 09/09/19 09/09/19 09/10/19 12:05 12:05 05:11 WBC 16.4 H 14.7 H RBC 4.25 L 4.03 L Hgb 13.5 12.6 L Hct 40.6 L 39.0 L MCV 95.7 96.7 MCH 31.7 31.3 MCHC 33.2 32.4 RDW 14.7 14.3 Plt Count 192 171 Neut % (Auto) 82.3 H 82.9 H Lymph % (Auto) 3.2 L 3.2 L [place] % (Auto) 14.1 H 13.9 Eos % (Auto) 0.0 L 0.0 L Baso % (Auto) 0.4 0.0 Neut # (Auto) 03319 H 34275 H Lymph # (Auto) 500 L 500 L [place] # (Auto) 2300 H 2000 H Eos # (Auto) 0 0 Baso # (Auto) 100 0 Sodium 134 L Potassium 4.7 Chloride 99 Carbon Dioxide 28 BUN 33 H Creatinine 1.30 H Estimated GFR 52.9 L BUN/Creatinine Ratio 25.4 H Glucose 128 H Calcium 8.8 Magnesium Chlamy pneumoniae PCR Adenovirus (PCR) B.parapertussis DNA PCR Coronavirus OC43 (PCR) Coronavirus HKU1 (PCR) Coronavirus 229E (PCR) Coronavirus NL63 (PCR) Human Metapneumovir PCR Influenza Type A (PCR) Influenza Type B (PCR) M. pneumoniae (PCR) Parainfluenza 1 (PCR) Parainfluenza 2 (PCR) Parainfluenza 3 (PCR) Parainfluenza 4 (PCR) RSV (PCR) Entero/Rhino (PCR) 09/10/19 09/10/19 05:11 09:10 WBC RBC Hgb Hct MCV MCH MCHC RDW Plt Count Neut % (Auto) Lymph % (Auto) [place] % (Auto) Eos % (Auto) Baso % (Auto) Neut # (Auto) Lymph # (Auto) [place] # (Auto) Eos # (Auto) Baso # (Auto) Sodium 135 L Potassium 4.2 Chloride 101 Carbon Dioxide 30 BUN 22 H Creatinine 1.00 Estimated GFR > 60.0 BUN/Creatinine Ratio 22.0 Glucose 105 Calcium 8.5 Magnesium 2.2 Chlamy pneumoniae PCR Not detected Adenovirus (PCR) Not detected B.parapertussis DNA PCR Not detected Coronavirus OC43 (PCR) Not detected Coronavirus HKU1 (PCR) Not detected Coronavirus 229E (PCR) Not detected Coronavirus NL63 (PCR) Not detected Human Metapneumovir PCR Not detected Influenza Type A (PCR) Not detected Influenza Type B (PCR) Not detected M. pneumoniae (PCR) Not detected Parainfluenza 1 (PCR) Not detected Parainfluenza 2 (PCR) Not detected Parainfluenza 3 (PCR) Not detected Parainfluenza 4 (PCR) Not detected RSV (PCR) Not detected Entero/Rhino (PCR) Not detected [address] [address] [address] Scan Report Signed Patient: Tobias Sesay WMR#: [id number] : [id number] Age/Sex: 84 / MDate of Service: 09/09/19 Loc: [id number] Accession Number: [id number] Procedure: CT thoracic spine wo con Ordering Provider: Clair Ivy MD PROCEDURE: CT THORACIC SPINE WO CON INDICATIONS: T10 fracture TECHNIQUE: Noncontrast 3 mm thick sections acquired through the region of interest in the thoracic spine. Sagittal and coronal reformats were then constructed. For radiation dose reduction, the following was used: automated exposure control. COMPARISON: [facility], CT, CT ABDOMEN PELVIS WO CON, 09/09/2019, 1:00. [facility], CR, XR CHEST 2V, 02/09/2019, 14:19. [facility] [place], CR, SPINE THORACOLUMBAR 2VW, 03/27/2014, 15:45. FINDINGS: Image quality: Diagnostic. Bones: Straightening of the normal lumbar lordosis is identified. A fracture involving the T10 vertebral body is identified in along the anterior margin of the vertebral body with associated widening at the anterior fracture line. No definite retropulsion is identified. Soft tissue attenuation at the fracture site is evident within the bone, which may represent hematoma. Kyphoplasty/vertebroplasty changes are noted involving the T3, T4, T6, and L1 vertebral bodies. Prominent anterior wedging is evident involving the T7 vertebral body with approximately 60% anterior vertebral height loss. A similar appearance is noted involving the T12 vertebral body with approximately 80% anterior vertebral height loss. Alignment is unchanged since the prior CT. Soft tissues: No paravertebral masses or hematomas. Visualized posteromedial lungs appear clear. Small bilateral effusions are present. There is aortic atherosclerosis. Low attenuation lesion within the region of the caudate lobe of the liver is present. There is also probable cyst involving the intra-margin of the left kidney. IMPRESSION: 1. Age indeterminate irregular fracture involving the T10 vertebral body with associated anterior vertebral widening without significant retropulsion. A pathologic fracture cannot be excluded. 2. No additional acute fractures are appreciated. 3. Vertebral plasty/kyphoplasty changes are present at multiple levels involving the thoracic and lumbar spine. Assessment & Plan Assessment & Plan narrative: Dr. Marin has reviewed the CT scan. Patient has 3 column unstable anklylosing spondy fracture and recommends surgery. Patient is bed rest status. NPO now. I discussed Dr. Moffett recommendation with the patient and his spouse who are in agreement with this plan.
--- NOTE | 2019-09-10 12:11 | CM.DPC ---
DCP Cont: According to recent ortho note, patient will be having surgery. He is continuing to be on bed rest. Called Josette at [facility], since referral has been sent, and she has confirmed acceptance, but she is aware that patient may be having surgery. Went ahead and completed PASSR. P: DCP to continue to follow. Patient may be having surgery later today, and will see how he progresses. Plan is for [facility] when he is medically stable. Brinda Peralta RN/Feeder/Folder
[2019-09-10] MEDS: HYDROMORPHONE 0.5 MG INJ IV ×2 (12:38→17:49)
--- NOTE | 2019-09-10 12:50 | PC.NURSE ---
Patient oriented to self and place, forgetful at times. Short of breath and wheezes throughout, RT called and assessed, treatment given. Dr Triplett also informed, orders received. Lamont goode.
--- NOTE | 2019-09-10 14:32 | P.PN_ITS ---
Subjective Subjective Date Patient Seen: 09/10/19 Interval history: Tobias Sesay is an 84-year-old male with a past medical history significant for coronary artery disease, hypertension, hyperlipidemia, paroxysmal atrial fibrillation on Xarelto, benign prostatic hypertrophy, gastroesophageal reflux disease, osteoarthritis and multiple level thoracic and lumbar compression fractures who presented to the ED with progressive worsening generalized weakness. The patient is on strict bedrest due to 3 column ankylosing spondylitis fractures and plan for operative intervention later today. The patient is now up to 4 L of supplemental oxygen and does not require oxygen at home. The pa flor had IV fluids with normal saline 125 mL/hr yesterdayto help with possible ileus and were stopped late yesterday afternoon. Patient also has conversational dyspnea on exam but reports this is chronic. Suspect patient has mild fluid overload due to IV fluid administration. Plan to diurese with 40 mg IV Lasix now. Patient denies shortness of breath but has obvious conversational dyspnea which he reports as normal and chronic. The patient endorses significant low lumbar back pain. He intermittently seems confused likely due to narcotic administration but when questioned will often be alert oriented x3. The patient is voiding via Miguel catheter without difficulty. Patient had BM wit h suppository yesterday afternoon. Per nursing staff BM was large and firm consistent with severe constipation. Continue bowel regimen. Continue strict bed rest due to planned orthopedic surgical intervention. Exam Vital Signs (past 8 hours): - 09/10/19 07:28 09/10/19 08:00 09/10/19 09:18 Temperature 99.1 F Pulse Rate 66 61 Respiratory Rate 20 Blood Pressure 109/46 L Pulse Oximetry 95 92 09/10/19 09:24 09/10/19 11:22 09/10/19 11:23 Temperature 97.7 F Pulse Rate 61 63 Respiratory Rate 20 20 Blood Pressure 132/72 Pulse Oximetry 97 96 97 09/10/19 12:47 Temperature Pulse Rate Respiratory Rate Blood Pressure Pulse Oximetry 94 Oxygen Delivery Method Nasal Cannula Oxygen Flow Rate 3 Narrative Exam Narrative: General: Elderly gentleman lying in bed and in no acute distress, well- developed, well-nourished, intermittently seems confused likely due to narcotic administration and other times appropriately interactive. HEENT: Normocephalic, atraumatic. External ears without defect. Pupils equal, round, and reactive to light . Anicteric sclerae, moist conjunctivae, and no lid lag. Oropharynx free of erythema and cobble stoning with moist mucosa. Neck: Supple with full range of motion. No jugular venous distension. No lym phadenopathy or thyromegaly. Cardiovascular: Heart sounds distant but appears to be regular rhythm and rate without murmurs, rubs, or gallops appreciated. Pulmonary: Diminished throughout but clear to auscultation bilaterally with scattered crackle. Mild use of accessory muscles and conversational dyspnea that is chronic per patient. Abdomen: Soft, bowel sounds present, nontender, nondistended. No hepatosplenomegaly or masses appreciated. Extremities: No clubbing, cyanosis, or edema. Skin: Normal temperature, turgor, and texture; no rash, ulcers, or subcutaneous nodules appreciated. Neurological: Cranial nerves grossly intact. Psychiatric: Normal mood and affect. Intermittent confusion likely due to narcotic administration versus mild cognitive impairment. Objective Labs Result Diagrams: 09/10/19 05:11 09/10/19 05:11 Labs: Laboratory Results - last 24 hr 09/10/19 09/10/19 09/10/19 05:11 05:11 09:10 WBC 14.7 H RBC 4.03 L Hgb 12.6 L Hct 39.0 L MCV 96.7 MCH 31.3 MCHC 32.4 RDW 14.3 Plt Count 171 Neut % (Auto) 82.9 H Lymph % (Auto) 3.2 L [place] % (Auto) 13.9 Eos % (Auto) 0.0 L Baso % (Auto) 0.0 Neut # (Auto) 50107 H Lymph # (Auto) 500 L [place] # (Auto) 2000 H Eos # (Auto) 0 Baso # (Auto) 0 Sodium 135 L Potassium 4.2 Chloride 101 Carbon Dioxide 30 BUN 22 H Creatinine 1.00 Estimated GFR > 60.0 BUN/Creatinine Ratio 22.0 Glucose 105 Calcium 8.5 Magnesium 2.2 Chlamy pneumoniae PCR Not detected Adenovirus (PCR) Not detected B.parapertussis DNA PCR Not detected Coronavirus OC43 (PCR) Not detected Coronavirus HKU1 (PCR) Not detected Coronavirus 229E (PCR) Not detected Coronavirus NL63 (PCR) Not detected Human Metapneumovir PCR Not detected Influenza Type A (PCR) Not detected Influenza Type B (PCR) Not detected M. pneumoniae (PCR) Not detected Parainfluenza 1 (PCR) Not detected Parainfluenza 2 (PCR) Not detected Parainfluenza 3 (PCR) Not detected Parainfluenza 4 (PCR) Not detected RSV (PCR) Not detected Entero/Rhino (PCR) Not detected Assessment & Plan Assessment & Plan narrative: Tobias Sesay is an 84-year-old male with a past medical history significant for coronary artery disease, hypertension, hyperlipidemia, paroxysmal atrial fibrillation on Xarelto, benign prostatic hypertrophy, gastroesophageal reflux disease, osteoarthritis and multiple level thoracic and lumbar compression fractures who presented to the ED with progressive worsening generalized weakn ess. 1. Acute pathological 3 column unstable anklylosing spondylosis fracture, present on admission. Active. -Patient presented with progressive worsening back pain without significant trauma other than he slid recently from the bed to the floor several days before admission. -CT abdomen and pelvis without contrast demonstrated suspect acute fracture of T10. There is prevertebral soft tissue stranding in the level of aortic hiatus. A small amount of fluid in the area is most likely a hematoma. -CT thoracic spine without contrast demonstrated age indeterminate irregular fracture involving the T10 vertebral body with associated anterior vertebral widening without significant retropulsion. No additional acute fractures are appreciated. Vertebral plasty/kyphoplasty changes are present at multiple levels involving the thoracic and lumbar spine. -Prior history of compression fractures status post kyphoplasties at T12, L1 and L5. -Continue pain management with: Acetaminophen 975 mg every 8 hours schedule for mild pain, oxycodone 5 mg every 4 hours as needed for moderate to severe pain, and Dilaudid 0.5 mg IV every 6 hours as needed for severe breakthrough pain. -Consulted orthopedic surgery, Dr. Ivy, for evaluation and treatment. Dr. Marin plans to take patient to OR this evening for surgical repair of acute pathological 3 column unstable ankylosing spondylosis fracture. 2. Acute hypoxemic respiratory failure, secondary to fluid overload, not present on admission. Improving. -Patient received IV fluids at 125 mL/hr for several hours which has been discontinued. Patient has a history of systolic CHF which resolved with medical management on last echo 05/2019. -Chest x-ray demonstrated mild pulmonary edema. -Ordered furosemide 40 mg IV x1 with 900 cc urine output. Plan to continue to reassess need for diuresis. 3. Generalized abdominal pain secondary to constipation, present on admission. Resolving. -Patient describes abdominal pain for 1 week with increasing distention and no bowel movement or flatus. -Abdominal series demonstrated nonobstructive bowel gas pattern and moderate amount of stool in colon consistent with possible ileus. -CT of the abdomen pelvis finds no evidence of bowel obstruction, no cholelithiasis with no basilia cholestatic inflammation, known renal calculi or hydronephrosis, no obstructing stone, several punctate layering stones in the urinary bladder. Large stool burden. -Continue bowel regimen with Colace 100 mg twice daily, polyethylene glycol 17 g daily, bisacodyl 10 mg suppository and/or mineral oil enema as needed for co nstipation. -Consider small-bowel follow-through if not moving bowels postoperatively. 4. COPD and restrictive lung disease, present on admission. Stable. -Does not represent acute COPD exacerbation. Patient tachypneic on arrival at 22 breaths per minute saturating 92% on room air. Patient is nonsmoker. Patient was scattered bilateral wheezing on exam with SpO2 dropping to 90 % on room air. -Previous pulmonary function test to 01/05/2020 due to wheezing with findings of moderate obstructive airway disease, severe restriction of the parenchyma, moderate to severe diffusion deficit. -Continue respiratory therapy evaluation and treatment. Continue supplemental oxygen to maintain oxygen saturation 88-92%. Continue DuoNebs every 4 hours while awake and albuterol nebulizer every 2 hours as needed for shortness of breath or wheezing. 5. Chronic kidney disease stage 3, present on admission. Stable. -Initial creatinine 1.4 which is close to baseline. Baseline creatinine is 1.4- 1.6. Creatinine now down to 1.0 which is falsely low due to IV fluid administration. -Continue to avoid nephrotoxic agents and optimize renal perfusion. -Continue to monitor renal function daily. 6. Paroxysmal atrial fibrillation, chronic, present on admission. Stable. -Now in sinus rhythm with controlled rate. -No complaints of chest pain. -Continue to hold Xarelto for planned surgical intervention later today. -Continue home metoprolol succinate 50 mg daily and amiodarone 200 mg daily. 7. Hypertension, chronic, present on admission. Stable. -Initial blood pressure 139/76, at time of encounter blood pressure is 79/53. -Initially held lisinopril 5 mg daily as patient's blood pressure was labile and now preoperatively to avoid postoperative hypotension. Continue metoprolol succinate 50 mg daily. 8. Hyperlipidemia, chronic, stable. -Continue home atorvastatin 20 mg daily. Code status: Full code VTE prophylaxis: SCDs, patient is on Xarelto. Disposition: Patient likely to discharge likely to assisted facility for rehabilitation versus home with home health in several days once he is recovered from Orthopedic surgery.
[2019-09-10] MEDS: ALBUTEROL/IPRATROPIUM 3 ML AMPUL INH (15:47)
--- NOTE | 2019-09-10 18:13 | PM.CN ---
History of Present Illness Consult details Date Patient Seen: 09/10/19 Time Patient Seen: 18:13 Chief complaint: Back Pain/Abd Pain Reason for consult: T10 compression fracture Requesting provider: Clair Ivy Narrative: 84-year-old male with back pain. He has a history of osteoporosis and multiple compression fractures treated with kyphoplasties by myself. He has been progressively getting weaker over the past several years and is mostly sedentary and moves around with a scooter wheelchair. One week ago he had a DEXA scan and as they were positioning him on the table he felt a pop and had excruciating back pain. The pain was getting better over the next few days but over the weekend he tried to get out of bed and felt down to the floors his legs would not support him. He was brought in the emergency room and admitted for a new T10 compression fracture. Denies pain numbness or any new weakness going into the legs, primarily midline back pain. He denies any trauma. He also has had a greatly distended abdomen and constipation for the past week. He normally is on Xarelto but has not had any since he was admitted. Meds Home Medications and Allergies Home Medications Medication Instructions Recorded Confirmed Type amiodarone 200 mg PO DAILY 09/09/19 09/09/19 History atorvastatin 20 mg PO DAILY 09/09/19 09/09/19 History lisinopril 5 mg PO DAILY 09/09/19 09/09/19 History metoprolol succinate 50 mg PO DAILY 09/09/19 09/09/19 History rivaroxaban [Xarelto] 20 mg PO DAILY 09/09/19 09/09/19 History Allergies Allergy/AdvReac Type Severity Reaction Status Date / Time aspirin [ASPIRIN] Allergy Unknown Verified 09/09/19 01:20 Review of Systems Constitutional Constitutional: Reports frequent falls Cardiovascular Cardiovascular: Denies chest pain Respiratory Respiratory: Denies chest congestion and Denies wheezing Gastrointestinal Gastrointestinal: Reports constipation Genitourinary Genitourinary: Reports urinary frequency Neurologic Neurologic: Reports frequent falls Hematologic/Lymphatic Hematologic/Lymphatic: Reports easy bleeding Allergic/Immunologic Allergic/Immunologic: Denies wheezing Exam Vital Signs (past 8 hours): - 09/10/19 11:22 09/10/19 11:23 09/10/19 12:47 Temperature 97.7 F Pulse Rate 63 Respiratory Rate 20 Blood Pressure 132/72 Pulse Oximetry 96 97 94 09/10/19 15:39 09/10/19 15:47 Temperature 98.7 F Pulse Rate 81 63 Respiratory Rate 22 18 Blood Pressure 111/74 Pulse Oximetry 94 Oxygen Delivery Method Nasal Cannula Oxygen Flow Rate 2 Const Orientation: alert Other: Just given IV pain medication, but arousable and responsive Resp Auscultation: clear to auscultation bilaterally Cardio Rate: regular rate Rhythm: regular rhythm Back/Spine/Pelvis Other: 5/5 motor both lower extremities except for 4/5 left hip flexor and quadriceps. These have been week per her his for a long time. Grossly intact sensation through both lower extremities. 1+ dorsalis pedis pulses both lower extremities. Negative straight leg raising and 2+ reflexes both lower extremities. Tender across the thoracolumbar junction and upper lumbar spine. Objective Imaging CT scan thoracic spine: My impression: Kyphoplasties of T3-T4 T6 and L1. Other compression fractures of T7 and T12. Transverse 3 column fracture with kyphosis through T10. Anterior autofusion at T5 through 7. Also anterior auto fusion at T10 through L2 Labs Result Diagrams: 09/10/19 05:11 09/10/19 05:11 Labs: Laboratory Results - last 24 hr 09/10/19 09/10/19 09/10/19 05:11 05:11 09:10 WBC 14.7 H RBC 4.03 L Hgb 12.6 L Hct 39.0 L MCV 96.7 MCH 31.3 MCHC 32.4 RDW 14.3 Plt Count 171 Neut % (Auto) 82.9 H Lymph % (Auto) 3.2 L [place] % (Auto) 13.9 Eos % (Auto) 0.0 L Baso % (Auto) 0.0 Neut # (Auto) 60206 H Lymph # (Auto) 500 L [place] # (Auto) 2000 H Eos # (Auto) 0 Baso # (Auto) 0 Sodium 135 L Potassium 4.2 Chloride 101 Carbon Dioxide 30 BUN 22 H Creatinine 1.00 Estimated GFR > 60.0 BUN/Creatinine Ratio 22.0 Glucose 105 Calcium 8.5 Magnesium 2.2 Chlamy pneumoniae PCR Not detected Adenovirus (PCR) Not detected B.parapertussis DNA PCR Not detected Coronavirus OC43 (PCR) Not detected Coronavirus HKU1 (PCR) Not detected Coronavirus 229E (PCR) Not detected Coronavirus NL63 (PCR) Not detected Human Metapneumovir PCR Not detected Influenza Type A (PCR) Not detected Influenza Type B (PCR) Not detected M. pneumoniae (PCR) Not detected Parainfluenza 1 (PCR) Not detected Parainfluenza 2 (PCR) Not detected Parainfluenza 3 (PCR) Not detected Parainfluenza 4 (PCR) Not detected RSV (PCR) Not detected Entero/Rhino (PCR) Not detected Assessment & Plan Assessment & Plan narrative: Three column fracture at T10 consistent with ankylosing spondylitis. Unlike his previous compression fractures, this is an unstable 3 column injury and is not stable with bracing. This require surgical intervention with a long stabilization construct due to his osteoporosis. I plan on doing a T6 through L2 posterior instrumentation with bone grafting for fusion posteriorly only at T9 through 11. Risks and benefits of surgery were discussed including not limited to medical risk with heart attack, stroke, , DVT, PE, infection, bleeding, scarring, nerve injury with pain numbness weakness paralysis, nonunion, failure to alleviate symptoms, need for further surgery. He was still groggy, but his understood. We will go over this again prior to surgery when the recent IV pain medication has worn off. Plan for surgery tonight.
[2019-09-10] MEDS: LACTATED RINGERS 1,000 ML 42 ML IV ×2 (20:00→22:04)
--- NOTE | 2019-09-10 20:38 | PM.PREOP ---
Pre-operative Note Interval Note History & Physical reviewed/Exam performed by Physician: Yes Changes to H&P: No H&P completed within 30 days and has changed as indicated here:: He is still quite sedated from his pain medication and verbal consent was obtained from his as we had discussed everything a few hours ago.
--- NOTE | 2019-09-10 20:38 | PM.OP.1 ---
Operative Date/Time/Diagnoses Date of procedure: 09/11/19 Time of procedure: 00:11 Pre-op diagnosis: Three column T10 fracture, unstable, displaced Post-op diagnosis: same Procedure & Clinicians Procedure: T7 through L2 posterior instrumentation Open reduction of T10 fracture T9 through 11 posterior fusion Iliac crest bone graft aspirate Same procedure as scheduled: Yes Indications: 84-year-old male with an unstable 3 column T10 fracture. It is felt that he require operative stabilization. Risks and benefits were discussed and appropriate consent obtained. Surgeon: Leodan Marin Low Raw Sugar Cutter: Denice Baumann Anesthesia Type: General Operative Notes Findings: None Closure Type: primary Specimen(s): none sent Prosthetic devices, grafts, tissues, transplants, or devices: NuVasive MAS Reline screws Applied: catheter Estimated Blood Loss (mL): 150 Procedure in detail: Patient brought to the operating room and intubated on the stretcher. He was rolled over the well-padded prone position on the Martell table. The back was prepped and draped in standard sterile fashion. Preoperative antibiotics were given. Time-out was performed. Using fluoroscopy, two 20 cm incisions were made on either side of the spine, centered over the T10 fracture. We used Bovie to come down to the fascia. We then used a combination of fluoroscopy and neural monitoring to percutaneously placed Jamshidi needles down the bilateral pedicles of T7 through L2. We skipped over the the previous kyphoplasty level of L1. He had hard bone at his previous compression fracture level of T7. The remainder was bone was extremely soft and osteoporotic. Visualization with fluoroscopy was somewhat difficult due to his osteoporosis. The Jamshidi needles were changed out to guidewires. We then exposed the posterolateral gutter and medially with the lamina from T9 through 11. A bur was used to decorticate the transverse processes and lateral aspect of the lamina. We then tapped over the guidewires and changed them out to pedicle screws with x-ray and fluoroscopy. He was rotated across the fracture and we rotated back and restored some of the alignment has was reduced some of the fracture angulation by manipulating the screw towers. We then conformed the rods and placed them into the screws and locked them down. Final x-rays were taken. The wounds were irrigated. A small stab incision was made over the right PSIS. We placed a Jamshidi needle down into the pelvis and aspirated 7 mL of bone marrow with multiple passes. This was mixed with a large Osteocel bone graft and placed in the posterolateral gutters from T9 through 11 for the posterolateral fusion around the fracture. The fascia was closed, superficial tissue was closed, skin was closed. A sterile dressing was placed. He was then rolled over, extubated brought to recovery with no complications. Complications: none Post-operative Condition: stable Disposition: PACU Plan for aftercare: Up with physical therapy as tolerated with a TLSO.
[2019-09-10] MEDS: CEFAZOLIN 2 GM/100 ML FROZ.PIGGY IV (20:48)
--- NOTE | 2019-09-10 21:01 | PC.NURSE ---
Patient agitated at the beginning of the shift. Calling out and would refuse care at first but then agreeable once explained on why things need to be done. Patient grimacing and moaning at times, gave a dose of 0.5mg IVP dilaudid. Patient then able to fall asleep. in to see patient and before surgery. Patient wouldnt open his eyes but followed commands when asked to lift legs up, move feet and asked if he wanted surgery, patient stated okay. Asked patient numerous times to open his eyes to sign the consent... patient would say okay and yes to sign but still would not open his eyes. signed consent. Pacu up at 2019 to take patient to surgery. Patient still wouldnt open eyes but answered questions appropriately and also back to getting agitated when asking him to open his eyes, patient stated yes he would open them but then would close them even harder. Explained to patient that he was going to surgery and asked if he was okay with that. Patient said surgery will be nice and yes he was okay with surgery. Patient down to pacu @2029.
--- NOTE | 2019-09-10 21:30 | SUR.OPER ---
Prone on spine table, head in foam head support, padded chest and pelvic supports, gel pad at knees, lower legs supported by pillows; nipples, genitalia and toes free of pressure, right arm secured on foam padded arm boards at <90 degrees abduction. Left shoulder extremely stiff and could not be placed in usual position. Arm placed on arm board at patients side with hand towards his feet per Dr. Marin. Tape over blanket at thigh secured to table.
[2019-09-10] MEDS: VANCOMYCIN 1,000 MG VIAL 1000 MG TOP (21:46)
[2019-09-10] MEDS: SODIUM CHLORIDE 0.9% 1,000 ML, GENTAMICIN 80 MG IRR ×2 (21:47)
[2019-09-10] MEDS: BUPIVACAINE 0.5% (PF) 20 ML, BUPIVACAINE LIPOSOME 266 MG INJ (21:51)
[2019-09-11] VITALS (24 sets, daily range): BP systolic 101–124; BP diastolic 51–92; PULSE 60–106; RESP 11–21; TEMP 35.9–36.9; O2SAT 10–95
--- NOTE | 2019-09-11 00:59 | SUR.PHASEI ---
Patient maintains oxygen saturation at 93% on 10 liters oxygen via simple face mask and oral airway.
--- NOTE | 2019-09-11 02:09 | PC.NURSE ---
0142 Pt. came back from PACU, Sleeping & snoring 5 liter 02/NC 95%. Moaning when ask him if he's okay, but does not open his eyes. VS WNL 111/57, HR 74, RR 16 & temp. 97.0. Both hands are slightly cyanotic, applied 2 warm blankets. Will cont. POC & monitor.
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
[2019-09-11] MEDS: LACTATED RINGERS 1,000 ML 125 ML IV (02:56)
--- NOTE | 2019-09-11 04:20 | PC.NURSE ---
3 liters 02/NC 96-100% turned 02 down to 1 liter, will monitor.
--- NOTE | 2019-09-11 04:33 | PC.NURSE ---
1 liter / 87*69
--- NOTE | 2019-09-11 04:35 | PC.NURSE ---
1 liter 02/NC SPO2 87-89% , increased 02 to 2 liters sat.90-95%, Will monitor.
[2019-09-11] MEDS: CEFAZOLIN 2 GM/100 ML FROZ.PIGGY IV ×2 (04:41→12:34)
[2019-09-11] MEDS: HYDROMORPHONE 0.5 MG INJ IV ×2 (06:34→10:32)
[2019-09-11] MEDS: SODIUM CHLORIDE 0.9% FLUSH 10 ML IV ×3 (06:35→22:08)
--- NOTE | 2019-09-11 07:40 | PM.PNPO.1 ---
Subjective Subjective Date Patient Seen: 09/11/19 Time Patient Seen: 07:40 Interval history: He is doing well. He reports his back pain is better. Exam Vital Signs (past 8 hours): - 09/11/19 00:44 09/11/19 00:49 09/11/19 00:54 Temperature 97.4 F L Pulse Rate 106 H 84 61 Respiratory Rate 15 14 12 Blood Pressure 115/92 H 121/64 114/57 L Pulse Oximetry 94 94 09/11/19 00:59 09/11/19 01:04 09/11/19 01:09 Temperature Pulse Rate 60 60 64 Respiratory Rate 15 13 13 Blood Pressure 110/57 L 118/56 L 110/58 L Pulse Oximetry 92 92 10 L 09/11/19 01:14 09/11/19 01:19 09/11/19 01:25 Temperature 97.7 F Pulse Rate 64 66 62 Respiratory Rate 14 11 L 14 Blood Pressure 108/62 124/59 L 107/63 Pulse Oximetry 95 95 95 09/11/19 01:54 09/11/19 02:15 09/11/19 02:48 Temperature 97.0 F L 97.2 F L 97.4 F L Pulse Rate 74 64 63 Respiratory Rate 16 16 17 Blood Pressure 111/57 L 111/59 L 115/56 L Pulse Oximetry 95 95 95 09/11/19 03:19 09/11/19 05:00 Temperature 97.2 F L 96.9 F L Pulse Rate 60 61 Respiratory Rate 16 16 Blood Pressure 108/51 L 107/70 Pulse Oximetry 95 93 Oxygen Delivery Method Nasal Cannula Oxygen Flow Rate 5 Const Orientation: alert Other: Groggy from recent pain medication but opens up his eyes response to commands and answers questions Back/Spine/Pelvis Other: CDI. 5/5 motor both lower extremities except for 4/5 bilateral hip flexors, questionable from effort Objective Labs Result Diagrams: 09/10/19 05:11 09/10/19 05:11 Labs: Laboratory Results - last 24 hr 09/10/19 09:10 Chlamy pneumoniae PCR Not detected Adenovirus (PCR) Not detected B.parapertussis DNA PCR Not detected Coronavirus OC43 (PCR) Not detected Coronavirus HKU1 (PCR) Not detected Coronavirus 229E (PCR) Not detected Coronavirus NL63 (PCR) Not detected Human Metapneumovir PCR Not detected Influenza Type A (PCR) Not detected Influenza Type B (PCR) Not detected M. pneumoniae (PCR) Not detected Parainfluenza 1 (PCR) Not detected Parainfluenza 2 (PCR) Not detected Parainfluenza 3 (PCR) Not detected Parainfluenza 4 (PCR) Not detected RSV (PCR) Not detected Entero/Rhino (PCR) Not detected Assessment & Plan Post-op Postoperative Procedures: Procedures Operation Date: 09/10/19 19:00 Actual Procedures Side Surgeon p T7-L2 Posterior Fusion Leodan Marin MD Stable after posterior instrumentation. We will start getting him up with PT today. I want him in a brace for supplemental fixation as his bone was so osteoporotic and I have ordered a TLSO
[2019-09-11 08:59] LABS: Add Manual Diff / Slide Review NO; Basophils Absolute Auto 0 /uL (0-100); Basophils Percent Auto 0.2 % (0-2); Eosinophils Absolute Auto 0 /uL (0-450); Hematocrit 36.7 % (41-53); Hemoglobin 11.9 g/dL (13.5-17.5); Lymphocytes Absolute Auto 200 /uL (1100-4500); Lymphocytes Percent Auto 1.4 % (25-40); Mean Corpuscular HGB Conc 32.5 % (30-36); Mean Corpuscular Hemoglobin 31.3 PG (26-34); Mean Corpuscular Volume 96.2 fL (80-100); Monocytes Absolute Auto 1400 /uL (0-900); Monocytes Percent Auto 10.1 % (3-14); Neutrophils Absolute Auto 12100 /uL (1500-7000); Neutrophils Percent Auto 88.3 % (50-75); Platelet Count 177 X10^3/uL (150-400); Red Blood Cell Count 3.81 X10^6/uL (4.5-5.9); Red Cell Distribution Width 14.2 % (11.6-14.8); White Blood Cell Count 13.6 X10^3/uL (4.5-11.0)
[2019-09-11 09:11] LABS: Alanine Aminotransferase 30 IU/L (<50); Albumin 3.1 g/dL (3.5-5.0); Alkaline Phosphatase 71 U/L (38-126); Aspartate Aminotransferase 53 IU/L (17-59); BUN Creatinine Ratio 25.6 (6-22); Bilirubin Total 0.6 mg/dL (0.2-1.3); Blood Urea Nitrogen 23 mg/dL (9-20); Calcium 8.3 mg/dL (8.4-10.2); Carbon Dioxide 35 mmol/L (22-32); Chloride 99 mmol/L (98-107); Estimated Glomerular Filt Rate > 60.0 mL/min (>60); Globulin 3.2 g/dL (1.7-4.1); Glucose 152 mg/dL (80-110); HEMOLYSIS < 15 (0-50); Magnesium 2.2 mg/dL (1.6-2.3); Potassium 4.4 mmol/L (3.4-5.1); Sodium 138 mmol/L (137-145); Total Protein 6.3 g/dL (6.3-8.2)
[2019-09-11] MEDS: METOPROLOL ER 50 MG TABLET PO (09:16)
[2019-09-11] MEDS: MAGNESIUM HYDROXIDE 30 ML UDC PO ×2 (09:16→22:07)
[2019-09-11] MEDS: ALBUTEROL/IPRATROPIUM 3 ML AMPUL INH ×3 (09:16→20:18)
[2019-09-11] MEDS: OXYCODONE IR 5 MG TABLET PO ×2 (09:16→22:07)
[2019-09-11] MEDS: CELECOXIB 200 MG CAPSULE PO ×2 (09:16→20:57)
[2019-09-11] MEDS: DOCUSATE 100 MG CAPSULE PO ×2 (09:17→20:56)
[2019-09-11] MEDS: ATORVASTATIN 20 MG TABLET PO (09:17)
[2019-09-11] MEDS: AMIODARONE 200 MG TABLET PO (09:17)
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
--- NOTE | 2019-09-11 10:56 | PC.NURSE ---
Addendum entered by Christy Hernández R.N. 09/11/19 14:45: Patient had 200cc urine output this shift, Dr Triplett aware, no new orders. Original Note: Patient with 3 max stood at edge of bed for a few seconds, could not take any steps. Had TLSO brace on. Assisted back to bed with 3 assist. SCD's replaced, bed alarm on.
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
--- NOTE | 2019-09-11 11:57 | CM.DPC ---
DCP Cont: Met with patient's , Radha. She wanted to confirm placement post hospitalization. Stated, I just don't want him to go to [facility]. Reassured patient's that patient is to go to [facility] across the street, and confirmed acceptance. Stated that he was at [facility] about 5 years ago, and didn't like the facility. Let her know that [facility] is no longer a rehab facility. P: DCP to continue to be a resources for patient and . [facility] is the plan, and PASSR was completed. asked how long he would be at [facility], and let her know that this would depend upon how he does with therapy. Brinda Peralta, RN/Multifold Operator
--- NOTE | 2019-09-11 16:45 | PT-IP ANOTE ---
Pt refused treatment on two attempts this afternoon. Extensively educated pt on risks of continued immobility, but pt stated he was too tired, in too much pain, and just wanted to sleep. Asked pt if PT could return in the morning with pt answering affirmatively.
--- NOTE | 2019-09-11 19:37 | PM.PN.1 ---
Subjective Subjective Date Patient Seen: 09/11/19 Interval history: Tobias Sesay is an 84-year-old male with a past medical history significant for coronary artery disease, hypertension, hyperlipidemia, paroxysmal atrial fibrillation on Xarelto, benign prostatic hypertrophy, gastroesophageal reflux disease, osteoarthritis and multiple level thoracic and lumbar compression fractures who presented to the ED with progressive worsening generalized weakness. The patient is lying in bed and appears comfortable. He frequently keeps his eyes closed while speaking to staff but is alert and oriented x3. He reports he did well today with physical therapy. He denies back pain. He is not had a bowel movement since suppository two days ago. He is passing flatus. Continue bowel regimen and will consider repeat abdominal series and possibly small-bowel follow-through. He continues to have mild conversational dyspnea (improved) which he reports is chronic. The patient is voiding via Miguel catheter without difficulty. Continue physical and occupational therapy. Exam Vital Signs (past 8 hours): - 09/11/19 12:26 09/11/19 12:46 09/11/19 15:02 Temperature 96.6 F L Pulse Rate 67 64 64 Respiratory Rate 16 Blood Pressure 109/65 Pulse Oximetry 89 L 90 L 94 09/11/19 15:52 Temperature 97.4 F L Pulse Rate 65 Respiratory Rate 21 Blood Pressure 101/57 L Pulse Oximetry 94 Oxygen Delivery Method Nasal Cannula Oxygen Flow Rate 0.5 Narrative Exam Narrative: General: Elderly gentleman lying in bed and in no acute distress, well-developed, well-nourished, intermittently seems confused likely due to narcotic administration and other times appropriately interactive. HEENT: Normocephalic, atraumatic. External ears without defect. Pupils equal, round, and reactive to light . Anicteric sclerae, moist conjunctivae, and no lid lag. Oropharynx free of erythema and cobble stoning with moist mucosa. Neck: Supple with full range of motion. No jugular venous distension. No lymphadenopathy or thyromegaly. Cardiovascular: Heart sounds distant but appears to be regular rhythm and rate without murmurs, rubs, or gallops appreciated. Pulmonary: Diminished throughout but clear to auscultation bilaterally. No crackle, wheeze or rhonchi. No use of accessory muscles and mild conversational dyspnea that is chronic per patient. Abdomen: Soft, bowel sounds present, nontender, mild distended. No hepatosplenomegaly or masses appreciated. Extremities: No clubbing, cyanosis, or edema. Skin: Normal temperature, turgor, and texture; no rash, ulcers, or subcutaneous nodules appreciated. Neurological: Cranial nerves grossly intact. Psychiatric: Normal mood and affect. Alert and oriented x3. Intermittent confusion likely due to narcotic administration versus mild cognitive impairment. Objective Labs Result Diagrams: 09/12/19 05:07 09/12/19 05:07 Labs: Laboratory Results - last 24 hr 09/11/19 09/11/19 08:45 08:45 WBC 13.6 H RBC 3.81 L Hgb 11.9 L Hct 36.7 L MCV 96.2 MCH 31.3 MCHC 32.5 RDW 14.2 Plt Count 177 Neut % (Auto) 88.3 H Lymph % (Auto) 1.4 L [place] % (Auto) 10.1 Eos % (Auto) 0.0 L Baso % (Auto) 0.2 Neut # (Auto) 55251 H Lymph # (Auto) 200 L [place] # (Auto) 1400 H Eos # (Auto) 0 Baso # (Auto) 0 Sodium 138 Potassium 4.4 Chloride 99 Carbon Dioxide 35 H BUN 23 H Creatinine 0.90 Estimated GFR > 60.0 BUN/Creatinine Ratio 25.6 H Glucose 152 H Calcium 8.3 L Magnesium 2.2 Total Bilirubin 0.6 AST 53 ALT 30 Alkaline Phosphatase 71 Total Protein 6.3 Albumin 3.1 L Globulin 3.2 Albumin/Globulin Ratio 1.0 Assessment & Plan Assessment & Plan narrative: Tobias Sesay is an 84-year-old male with a past medical history significant for coronary artery disease, hypertension, hyperlipidemia, paroxysmal atrial fibrillation on Xarelto, benign prostatic hypertrophy, gastroesophageal reflux disease, osteoarthritis and multiple level thoracic and lumbar compression fractures who presented to the ED with progressive worsening generalized weakness. 1. 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 Active. -Patient presented with progressive worsening back pain without significant trauma other than he slid recently from the bed to the floor several days before admission. -CT abdomen and pelvis without contrast demonstrated suspect acute fracture of T10. There is prevertebral soft tissue stranding in the level of aortic hiatus. A small amount of fluid in the area is most likely a hematoma. -CT thoracic spine without contrast demonstrated age indeterminate irregular fracture involving the T10 vertebral body with associated anterior vertebral widening without significant retropulsion. No additional acute fractures are appreciated. Vertebral plasty/kyphoplasty changes are present at multiple levels involving the thoracic and lumbar spine. -Prior history of compression fractures status post kyphoplasties at T12, L1 and L5. -Continue pain management with: Acetaminophen 975 mg every 8 hours schedule for mild pain, oxycodone 5 mg every 4 hours as needed for moderate to severe pain, and Dilaudid 0.5 mg IV every 6 hours as needed for severe breakthrough pain. -Consulted orthopedic surgery, Dr. Marin, who performed T7 through L2 posterior instrumentation, open reduction of T10 fracture, T9 through 11 posterior fusion, and Iliac crest bone graft aspirate 2. Acute hypoxemic respiratory failure, secondary to fluid overload, not present on admission. Resolved. -Patient received IV fluids at 125 mL/hr for several hours which has been discontinued. Patient has a history of systolic CHF which resolved with medical management on last echo 05/2019. -Chest x-ray demonstrated mild pulmonary edema. -Ordered furosemide 40 mg IV x1 with 900 cc urine output. Plan to continue to reassess need for diuresis. -Continue supplemental oxygen as necessary to maintain oxygen saturations 88-92%. Patient no longer requiring oxygen. He does occasionally desaturate while sleeping and may use oxygen as necessary. 3. Generalized abdominal pain secondary to constipation, present on admission. Resolving. -Patient describes abdominal pain for 1 week with increasing distention and no bowel movement or flatus. -Abdominal series demonstrated non-obstructive bowel gas pattern and moderate amount of stool in colon consistent with possible ileus. -CT of the abdomen pelvis finds no evidence of bowel obstruction, no cholelithiasis with no basilia cholestatic inflammation, known renal calculi or hydronephrosis, no obstructing stone, several punctate layering stones in the urinary bladder. Large stool burden. -Continue bowel regimen with Colace 100 mg twice daily, polyethylene glycol 17 g daily, bisacodyl 10 mg suppository and/or mineral oil enema as needed for constipation. -Consider repeat abdominal series and possible small-bowel follow-through if not moving bowels postoperatively. 4. COPD and restrictive lung disease, present on admission. Stable. -Does not represent acute COPD exacerbation. Patient tachypneic on arrival at 22 breaths per minute saturating 92% on room air. Patient is nonsmoker. Patient was scattered bilateral wheezing on exam with SpO2 dropping to 90 % on room air. -Previous pulmonary function test to 01/05/2020 due to wheezing with findings of moderate obstructive airway disease, severe restriction of the parenchyma, moderate to severe diffusion deficit. -Continue respiratory therapy evaluation and treatment. Continue supplemental oxygen to maintain oxygen saturation 88-92%. Patient no longer requiring oxygen. Continue DuoNebs every 4 hours while awake and albuterol nebulizer every 2 hours as needed for shortness of breath or wheezing. 5. Chronic kidney disease stage 3, present on admission. Stable. -Initial creatinine 1.4 which is close to baseline. Baseline creatinine is 1.4-1.6. Creatinine now down to 1.0 which is falsely low due to IV fluid administration. -Continue to avoid nephrotoxic agents and optimize renal perfusion. -Continue to monitor renal function daily. 6. Paroxysmal atrial fibrillation, chronic, present on admission. Stable. -Now in sinus rhythm with controlled rate. -No complaints of chest pain. -Held Xarelto for surgical intervention and will inquire with Orthopedic surgery when to restart. -Continue home metoprolol succinate 50 mg daily and amiodarone 200 mg daily. 7. Hypertension, chronic, present on admission. Stable. -Initial blood pressure 139/76, at time of encounter blood pressure is 79/53. -Initially held lisinopril 5 mg daily as patient's blood pressure was labile and now preoperatively to avoid postoperative hypotension. Continue metoprolol succinate 50 mg daily. 8. Hyperlipidemia, chronic, stable. -Continue home atorvastatin 20 mg daily. Code status: Full code VTE prophylaxis: SCDs, patient is on Xarelto. Disposition: Patient likely to discharge to long term facility for rehabilitation in the next several days once he is recovered from Orthopedic surgery.
[2019-09-11] MEDS: SENNOSIDES 8.6 MG TABLET 17.2 MG PO (20:57)
[2019-09-11] MEDS: NYSTATIN POWDER 15GM 1 APPLIC TOP (20:59)
[2019-09-12] VITALS (9 sets, daily range): BP systolic 91–121; BP diastolic 44–92; PULSE 64–82; RESP 16–22; TEMP 36.5–37; O2SAT 87–95
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
[2019-09-12 05:36] LABS: Add Manual Diff / Slide Review NO; Basophils Absolute Auto 0 /uL (0-100); Basophils Percent Auto 0.1 % (0-2); Eosinophils Absolute Auto 0 /uL (0-450); Hematocrit 34.9 % (41-53); Hemoglobin 11.5 g/dL (13.5-17.5); Lymphocytes Absolute Auto 300 /uL (1100-4500); Mean Corpuscular HGB Conc 32.9 % (30-36); Mean Corpuscular Hemoglobin 31.3 PG (26-34); Mean Corpuscular Volume 95.4 fL (80-100); Monocytes Absolute Auto 2300 /uL (0-900); Monocytes Percent Auto 13.8 % (3-14); Neutrophils Absolute Auto 13800 /uL (1500-7000); Neutrophils Percent Auto 84.1 % (50-75); Platelet Count 176 X10^3/uL (150-400); Red Blood Cell Count 3.66 X10^6/uL (4.5-5.9); Red Cell Distribution Width 14.5 % (11.6-14.8); White Blood Cell Count 16.5 X10^3/uL (4.5-11.0)
[2019-09-12 05:44] LABS: BUN Creatinine Ratio 34.5 (6-22); Blood Urea Nitrogen 38 mg/dL (9-20); Calcium 7.9 mg/dL (8.4-10.2); Carbon Dioxide 34 mmol/L (22-32); Chloride 94 mmol/L (98-107); Estimated Glomerular Filt Rate > 60.0 mL/min (>60); Glucose 127 mg/dL (80-110); HEMOLYSIS < 15 (0-50); Potassium 4.4 mmol/L (3.4-5.1); Sodium 132 mmol/L (137-145)
--- NOTE | 2019-09-12 07:22 | DI.RAD.S_ITS ---
PROCEDURE: XR ACUTE ABDOMEN SERIES INDICATIONS: Ileus TECHNIQUE: One view chest and two views of the abdomen were acquired. COMPARISON: None. FINDINGS: Surgical changes and devices: Pacemaking device and dual chamber leads, bilateral spine fusion crossing from thoracic and lumbosacral region. Chest: Lungs are abnormal, with dense opacification behind the left heart. Heart size is normal. No pleural effusions. No pneumoperitoneum. Abdomen: Colonic bowel gas pattern is normal. Small bowel mild prominence right mid abdomen, nonspecific in appearance with etiology considered more likely to be ileus than early obstruction. No suspicious calcifications. Visualized solid organ contours appear normal. Bones: No suspicious bony lesions. IMPRESSION: Nonspecific bowel gas pattern, no definite obstruction or perforation seen. Note is made of mild prominence of several small bowel loops over the right mid abdomen, more likely ileus than obstruction by appearance Dictated by: Rogelio Rothman M.D. on 09/12/2019 at 10:42 Approved by: Rogelio Rothman M.D. on 09/12/2019 at 10:44
--- NOTE | 2019-09-12 08:26 | P.PN_ITS ---
Subjective Subjective Date Patient Seen: 09/12/19 Time Patient Seen: 08:26 Interval history: Complains of significant back pain, but legs are fine. He is alert and oriented today. Exam Vital Signs (past 8 hours): - 09/12/19 03:00 Temperature 97.8 F Pulse Rate 64 Respiratory Rate 20 Blood Pressure 91/44 L Pulse Oximetry 95 Oxygen Delivery Method Room Air Oxygen Flow Rate 0 Const Orientation: alert and oriented x3 Back/Spine/Pelvis Other: Mild drainage. 5/5 motor both lower extremities. Objective Labs Result Diagrams: 09/12/19 05:07 09/12/19 05:07 Labs: Laboratory Results - last 24 hr 09/11/19 09/11/19 09/12/19 08:45 08:45 05:07 WBC 13.6 H 16.5 H RBC 3.81 L 3.66 L Hgb 11.9 L 11.5 L Hct 36.7 L 34.9 L MCV 96.2 95.4 MCH 31.3 31.3 MCHC 32.5 32.9 RDW 14.2 14.5 Plt Count 177 176 Neut % (Auto) 88.3 H 84.1 H Lymph % (Auto) 1.4 L 2.0 L [place] % (Auto) 10.1 13.8 Eos % (Auto) 0.0 L 0.0 L Baso % (Auto) 0.2 0.1 Neut # (Auto) 60687 H 13184 H Lymph # (Auto) 200 L 300 L [place] # (Auto) 1400 H 2300 H Eos # (Auto) 0 0 Baso # (Auto) 0 0 Sodium 138 Potassium 4.4 Chloride 99 Carbon Dioxide 35 H BUN 23 H Creatinine 0.90 Estimated GFR > 60.0 BUN/Creatinine Ratio 25.6 H Glucose 152 H Calcium 8.3 L Magnesium 2.2 Total Bilirubin 0.6 AST 53 ALT 30 Alkaline Phosphatase 71 Total Protein 6.3 Albumin 3.1 L Globulin 3.2 Albumin/Globulin Ratio 1.0 09/12/19 05:07 WBC RBC Hgb Hct MCV MCH MCHC RDW Plt Count Neut % (Auto) Lymph % (Auto) [place] % (Auto) Eos % (Auto) Baso % (Auto) Neut # (Auto) Lymph # (Auto) [place] # (Auto) Eos # (Auto) Baso # (Auto) Sodium 132 L Potassium 4.4 Chloride 94 L Carbon Dioxide 34 H BUN 38 H Creatinine 1.10 Estimated GFR > 60.0 BUN/Creatinine Ratio 34.5 H Glucose 127 H Calcium 7.9 L Magnesium Total Bilirubin AST ALT Alkaline Phosphatase Total Protein Albumin Globulin Albumin/Globulin Ratio Assessment & Plan Post-op Postoperative Procedures: Procedures Operation Date: 09/10/19 19:00 Actual Procedures Side Surgeon p T7-L2 Posterior Fusion Leodan Marin MD He stable. Continue to mobilize today with physical therapy. I would like to wait 1 more day before restarting him on his Xarelto tomorrow.
[2019-09-12] MEDS: ALBUTEROL/IPRATROPIUM 3 ML AMPUL INH ×3 (08:29→19:19)
[2019-09-12] MEDS: OXYCODONE IR 5 MG TABLET PO (09:02)
[2019-09-12] MEDS: CELECOXIB 200 MG CAPSULE PO ×2 (09:02→21:42)
[2019-09-12] MEDS: ATORVASTATIN 20 MG TABLET PO (09:02)
[2019-09-12] MEDS: AMIODARONE 200 MG TABLET PO (09:02)
[2019-09-12] MEDS: SODIUM CHLORIDE 0.9% FLUSH 10 ML IV ×2 (09:03→21:29)
[2019-09-12] MEDS: NYSTATIN POWDER 15GM 1 APPLIC TOP ×2 (09:03→21:00)
[2019-09-12] MEDS: polyethylene glycoL 3350 17 GM POWD.PACK PO (09:03)
[2019-09-12] MEDS: DOCUSATE 100 MG CAPSULE PO ×2 (09:03→21:43)
[2019-09-12] MEDS: METOPROLOL ER 50 MG TABLET PO (09:03)
--- NOTE | 2019-09-12 11:32 | PT.IPTN ---
Current Diagnoses Ileus, unspecified (09/09/19) Surgery Performed Operation Date: 09/10/19 19:00 Actual Procedures p T7-L2 Posterior Fusion - Leodan Marin MD Physical Therapy Treatment Note M2 PT-IP Current Condition Start: 09/09/19 09:04 Freq: NEEDED Status: Active Protocol: Document 09/11/19 11:00 AW (Rec: 09/11/19 11:42 AW [id number]) Physical Therapy Current Condition Current Condition Evaluation Date 09/11/19 Treatment Diagnosis T7-L2 posterior instrumentation, recurrent falls, impaired mobility Onset Date 09/09/19 Precautions Lumbar Precautions Log Roll,No Twisting,Limit Bending,Lifting Restriction of 10 lbs,Gait Belt above Incisional Area Brace TLSO for all out of bed mobility Other Precautions osteopenia Weight Bearing Status Weight Bearing Status Full Weight Bearing M3 PT-IP Subjective Start: 09/09/19 09:04 Freq: NEEDED Status: Active Protocol: Document 09/12/19 11:32 DLM (Rec: 09/12/19 12:00 DLM [id number]) Subjective Physical Therapy Visit Type Type Treatment Note Visit Start Time 11:00 Visit Stop Time 11:32 Total Visit Minutes 32 Number of [employer] Visits 0 Physical Therapy Visit Comments Patient Comments he complaints that everyone is in his way today Therapy Pain Assessment Pain When Pain Assessed During Mobility Pain Present Pain Present Pain Reported FLACC Pain Scale Face Occasional grimace/frown Legs Uneasy, restless, tense Activity Squirming,shifting Cry Moans/whimpers/complains Consolability Reassurable with touch FLACC Total 5 Location Back Intensity 5 Scale Used FLACC Pain Management Techniques Re-positioning M4 PT-IP Mobility and Gait Start: 09/09/19 09:04 Freq: NEEDED Status: Active Protocol: Document 09/12/19 11:32 DLM (Rec: 09/12/19 12:00 DLM [id number]) PT-Bed Mobility Assessment Rolling Type of Rolling Log Rolling,Roll to Right Level of Assist Maximal Assistance,2 Person Assistance Supine to Sit Supine to Sit Maximum Assistance,2 Person Assistance Scooting Scooting to Edge of Bed Maximum Assistance,Dependent PT-Transfer Assessment Sit to and From Stand Sit to and from Stand Moderate Assistance,2 Person Assistance,Use of Upper Extremities Equipment Transfer Assistive Device Gait Belt,Front Wheeled Walker Transfers Transfer Destination Chair Transfer Technique Mechanical Lift Transfer Ability Level of Assist Total Assistance Comments Mobility Comments flexed posture in standing, he attempts to push the fWW too far in front of him, he leans to right, TLSO applied sitting edge of bed for which pt is dependent, Pt frequently keeps his eyes closed during this visit but is not sleeping, he can open his eyes when cued but does not keep them open, he gets short of breath with activity and 2 LPM oxygen used during activity due to oxygen desaturation Gait Assessment Comments Gait Comments he has able to take a small step or two at edge of bed but not safe enough to complete a transfer yet, pt mod/max assist of two people with fWW PT-Balance Assessment Sitting Balance and Reactions Static Sitting Balance Ability Fair Dynamic Sitting Balance Ability Poor Standing Balance and Reactions Static Standing Balance Ability Poor Dynamic Standing Balance Ability Poor Device Used FWW Functional Assessments Other Functional Tests Performed pt leans to right even in sitting M5 PT-IP Objective Assessments Start: 09/09/19 09:04 Freq: NEEDED Status: Active Protocol: Document 09/11/19 11:00 AW (Rec: 09/11/19 11:42 AW [id number]) Orientation Orientation/Cognition Level of Alertness Confusional State Orientation Name,Age,Situation Safety Awareness Decreased Safety Awareness Comments Pt is more confused today but admits to understanding he is confused. Gross Range of Motion Upper Extremity ROM Assessment Bilaterally Impaired Impairments Limited R shoulder rotation. Lacking full elbow extension. Lower Extremity ROM Assessment Bilaterally Impaired Strength Lower Extremity Strength Assessment Bilaterally Impaired Hip 3-/5 Knee 4-/5 Ankle 3+/5 M6 PT-IP Treatment Start: 09/09/19 09:04 Freq: NEEDED Status: Active Protocol: Document 09/12/19 11:32 DLM (Rec: 09/12/19 12:00 DLM [id number]) Physical Therapy Treatment Education Education Provided Safety Other Treatments Other Treatment Performed sitting edge of bed M7 PT-IP Assessment and Plan Start: 09/09/19 09:04 Freq: NEEDED Status: Active Protocol: Document 09/12/19 11:32 DLM (Rec: 09/12/19 12:00 DLM [id number]) PT Summary Assessment and Plan Summary Impairments Pain,ROM,Strength,Balance,Bed Mobility,Transfers,Gait, Activity Tolerance Progress Towards Goals Slow Progress due to Activity Tolerance Assessment Summary Don is confused and keeps his eyes closed most of this visit . He is difficult to redirect to increase his participation. He sat edge of bed and stood with the fWW with two person assist. Attempted transfer but pt too weak and fatigued to do stand pivot transfer to the recliner. The mechanical lift was used to transfer him to the recliner to sit up for lunch. Chair alarm in use when up. His is present and observed therapy session. He needs encouragement to increase his activity level today and repeatedly asked why he is doing this. He could benefit from SNF rehab at discharge. Due to his poor activity tolerance he will need a stretcher to transport at discharge. Goals Bed Mobility Goal Minimal Assistance Transfer Goal Minimal Assistance,Front Wheeled Walker Gait Goal Minimal Assistance,Front Wheel Walker Gait Distance 75 Days to Meet Goals 10 Frequency of Treatment Frequency Of Treatment Twice a Day Treatment Plan Physical Therapy Treatment Plan Bed Mobility Training,Transfer Training,Gait Training, Therapeutic Exercise,Balance Retraining,Post Op Education, Discharge Planning,Hot or Cold Pack,Neuromuscular Re-ed Other Recommendations and Next Treatment TLSO applied in sitting, start Focus with brace as low as possible since it rides up easily on pt Recommendations To Nursing Amount of Assist Needed 2 Person Assist,Mechanical Lift Discharge Recommendations PT Discharge Recommendations SNF Rehab Transportation Needs at Discharge Stretcher/Ambulance
--- NOTE | 2019-09-12 11:33 | OT.IP.TRT ---
Current Diagnoses Ileus, unspecified (09/09/19) Surgery Performed Operation Date: 09/10/19 19:00 Actual Procedures p T7-L2 Posterior Fusion - Leodan Marin MD Occupational Therapy Treatment Note M2 OT-IP Current Condition Start: 09/11/19 11:41 Freq: Status: Active Protocol: Document 09/11/19 10:52 PJM (Rec: 09/11/19 16:36 PJM [id number]) Occupational Therapy Current Condition Current Condition Evaluation Date 09/11/19 Treatment Diagnosis decreased self care/mobility s/p T10 compr fx s/p T7-L2 PLIF w/ graft 09/10/19 Diagnosis Onset Date 09/08/19 Post Operative Precautions Lumbar Precautions Log Roll,No Twisting,Limit Bending,Lifting Restriction of 10 lbs,Gait Belt above Incisional Area Other Precautions TLSO brace on when out of bed M3 OT- IP Subjective and Pain Start: 09/11/19 11:41 Freq: Status: Active Protocol: Document 09/12/19 11:33 PJM (Rec: 09/12/19 17:31 PJM [id number]) OT- Subjective Occupational Therapy Visit Type Type Treatment Note Visit Start Time 10:53 Visit Stop Time 11:33 Total Visit Minutes 40 Notes co tx with P.T. as 2 skilled assist needed for safety with mobility Occupational Therapy Visit Comments Patient Comments What are we doing? Let's get going. Patient/Caregiver Goals unable to verbalize goal due to confusion OT Pain Assessment Pain When Pain Assessed During Mobility Pain Present Pain Present Pain Reported FLACC Pain Scale Face Occasional grimace/frown Legs Uneasy, restless, tense Activity Squirming,shifting Cry Moans/whimpers/complains Consolability Difficult to console FLACC Total 6 Location Back Pain Behaviors Calling Out M4 OT- IP ADL's Start: 09/11/19 11:41 Freq: Status: Active Protocol: Document 09/12/19 11:33 PJM (Rec: 09/12/19 17:31 PJM [id number]) OT ADL-Grooming General Evaluation Grooming Ability Moderate Assistance Areas Needing Assistance Face Washing,Glasses Comments OT Grooming Comments Pt needs total assist to don and doff glasses and min assist with face washing for thoroughness. OT ADL-Dressing General Eval Upper Body Dressing Ability Total Assistance OT ADL-Toileting General Evaluation Toileting Ability Total Assistance Comments OT Toileting Comments david OT ADL-Bathing Bathing Type Bathing Type Bed Bath General Evaluation Bathing Ability Total Assistance M6 OT- IP Functional Cognition Start: 09/11/19 11:41 Freq: Status: Active Protocol: Document 09/12/19 11:33 PJM (Rec: 09/12/19 17:31 PJ [id number]) Cognitive Factors Limiting Selfcare Function Cognitive Ability Level of Alertness Confusional State,Drowsy Attention Span Ability Unable to Focus,Unable to Sustain Attention Cognitive Comments Cognitive Assessment Comments Pt following one step commands inconsistently with repetition required. Pt has decreased insight into purpose of therapy session and feels therapist's are standing too close and are in my way during attempts to sit to stand and transfer. Poor insight into current high care needs. OT- Vision and Hearing OT- Vision Assessment Vision Assessment Comments Pt keeps eyes closed majority of time but does not appear to be sleeping as he responds to questions. M7 OT- IP Mobility and Balance Start: 09/11/19 11:41 Freq: Status: Active Protocol: Document 09/12/19 11:33 PJM (Rec: 09/12/19 17:31 [facility] [id number]) OT- Bed Mobility Assessment Rolling Level of Assistance Maximum Assistance,2 Person Assistance Scooting Scooting to Edge of Bed Maximum Assistance,2 Person Assistance OT-Transfer Assessment Sit to and From Stand Sit to and from Stand Maximum Assistance,2 Person Assistance,Use of Upper Extremities Technique Transfer Destination Chair Transfer Technique Mechanical Lift Devices Transfer Assistive Devices Gait Belt,Front Wheeled Walker Comments Mobility Comments TLSO donned with total assist with pt seated EOB OT- Gait Assessment Comments Gait Ability Comments pt unable to ambulate at present OT- Balance Assessment Sitting Balance and Reactions Static Sitting Balance Ability Poor Dynamic Sitting Balance Ability Poor Standing Balance and Reactions Static Standing Balance Ability Poor Dynamic Standing Balance Ability Poor Comments Other Balance Tests/Deviations/Treatment pt leans heavily to right on : edge of bed and seated in recliner; reports this is not new M9 OT- IP Assessment and Plan Start: 09/11/19 11:41 Freq: Status: Active Protocol: Document 09/12/19 11:33 PJM (Rec: 09/12/19 17:31 [facility] [id number]) OT Summary Assessment and Plan Potential Rehabilitation Potential Fair Summary OT Impairments Pain,Range of Motion,Strength, Balance,Coordination, Functional Cognition, Functional Mobility,Grooming, Dressing,Toileting,Bathing, Toilet Transfers,Shower Transfers,Activity Tolerance Progress Towards Goals Slow Progress due to Pain,Slow Progress due to Activity Tolerance,Slow Progress due to Cognition Assessment Summary Pt seen for functional mobility with improved sit to stand today compared to yesterday but still unable to come fully upright and unable to weight shift for stepping. Mechanical lift needed for transfers at present. Pt presents with disorientation, poor attention, concentration, decreased insight into purpose of therapy session and current deficits. Pt has perseverative features, repeatedly stating It's time to go. Inconsistent command following noted with pt keeping eyes closed majority of session, but he is not asleep. Pt will need SNF at d/c for further rehab due to high care needs. Goals Grooming Goal Standby Assistance Dressing Goal Moderate Assistance,Long Handled Shoe Horn,Barrel Lathe Operator Inside,Sock Aid Toileting Goal Moderate Assistance Bathing Goal Minimal Assistance Toilet Transfer Goal Moderate Assistance,Bedside Commode OT-Other Goals Grooming to be done seated in chair with set up. Bathing goal is for seated upper body sponge bath. Days to Meet Goals 7 Frequency of Treatment Frequency Of Treatment Once a Day Treatment Plan OT Treatment Plan ADL Training,Functional Cognition Training,Functional Mobility,Patient/Family Education,Discharge Planning Discharge Recommendations OT Discharge Recommendations SNF Rehab Home Equipment Needs to be determined pending progress in next rehab setting Transportation Needs at Discharge Wheelchair/Cabulance,Needs mechanical lift to get into chair
--- NOTE | 2019-09-12 12:56 | P.PN_ITS ---
Subjective Subjective Date Patient Seen: 09/12/19 Interval history: Tobias Sesay is an 84-year-old male with a past medical history significant for coronary artery disease, hypertension, hyperlipidemia, paroxysmal atrial fibrillation on Xarelto, benign prostatic hypertrophy, gastroesophageal reflux disease, osteoarthritis and multiple level thoracic and lumbar compression fractures who presented to the ED with progressive worsening generalized weakness. The patient is sitting in bedside chair eating lunch and appears comfortable. His spouse is present in the room and all her questions were answered. His spouse reports intermittent confusion and the patient appears to be more confused today than yesterday which is likely due to narcotics. However, the patient does endorse dysuria and will plan to treat patient for possible Proteus UTI. He endorses back pain today. He has not had a bowel movement since suppository two days ago. He is passing flatus. Continue bowel regimen and ordered small-bowel follow-through for tomorrow if patient has not had BM. He continues to have mild conversational dyspnea (improved) which he reports is chronic. The patient's spouse relates that she does not think he is ready for retirement facility for rehab because he is not moving well enough and she needs more time to tour different facilities. The patient is voiding via Miguel catheter without difficulty. Continue physical and occupational therapy. Exam Vital Signs (past 8 hours): - 09/12/19 08:29 09/12/19 09:00 09/12/19 11:22 Temperature 98.3 F Pulse Rate 75 82 Respiratory Rate 20 18 Blood Pressure 121/60 Pulse Oximetry 94 90 L Oxygen Delivery Method Room Air Oxygen Flow Rate 0 Narrative Exam Narrative: General: Elderly gentleman lying in bed and in no acute distress, well- developed, well-nourished, intermittently seems confused likely due to narcotic administration and other times appropriately interactive. HEENT: Normocephalic, atraumatic. External ears without defect. Pupils equal, round, and reactive to light . Anicteric sclerae, moist conjunctivae, and no lid lag. Oropharynx free of erythema and cobble stoning with moist mucosa. Neck: Supple with full range of motion. No jugular venous distension. No lymphadenopathy or thyromegaly. Cardiovascular: Heart sounds distant but appears to be regular rhythm and rate without murmurs, rubs, or gallops appreciated. Pulmonary: Diminished throughout but clear to auscultation bilaterally. No crackle, wheeze or rhonchi. No use of accessory muscles and mild conversational dyspnea that is chronic per patient. Abdomen: TSLO brace in place but abdomen appears soft, nontender, and mildly distended. No hepatosplenomegaly or masses appreciated. Back: Not viewed due to TLSO brace in place. Extremities: No clubbing, cyanosis, or edema. Skin: Normal temperature, turgor, and texture; no rash, ulcers, or subcutaneous nodules appreciated. Neurological: Cranial nerves grossly intact. Psychiatric: Normal mood and affect. Alert oriented x2 with intermittent confusion likely due to narcotic administration versus mild cognitive impairment. Objective Labs Result Diagrams: 09/12/19 05:07 09/12/19 05:07 Labs: Laboratory Results - last 24 hr 09/12/19 09/12/19 05:07 05:07 WBC 16.5 H RBC 3.66 L Hgb 11.5 L Hct 34.9 L MCV 95.4 MCH 31.3 MCHC 32.9 RDW 14.5 Plt Count 176 Neut % (Auto) 84.1 H Lymph % (Auto) 2.0 L [place]y % (Auto) 13.8 Eos % (Auto) 0.0 L Baso % (Auto) 0.1 Neut # (Auto) 48687 H Lymph # (Auto) 300 L [place] # (Auto) 2300 H Eos # (Auto) 0 Baso # (Auto) 0 Sodium 132 L Potassium 4.4 Chloride 94 L Carbon Dioxide 34 H BUN 38 H Creatinine 1.10 Estimated GFR > 60.0 BUN/Creatinine Ratio 34.5 H Glucose 127 H Calcium 7.9 L Assessment & Plan Assessment & Plan narrative: Tobias Sesay is an 84-year-old male with a past medical history significant for coronary artery disease, hypertension, hyperlipidemia, paroxysmal atrial fibrillation on Xarelto, benign prostatic hypertrophy, gastroesophageal reflux disease, osteoarthritis and multiple level thoracic and lumbar compression fractures who presented to the ED with progressive worsening generalized weakness. 1. 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 Active. -Patient presented with progressive worsening back pain without significant trauma other than he slid recently from the bed to the floor several days before admission. -CT abdomen and pelvis without contrast demonstrated suspect acute fracture of T10. There is prevertebral soft tissue stranding in the level of aortic hiatus. A small amount of fluid in the area is most likely a hematoma. -CT thoracic spine without contrast demonstrated age indeterminate irregular fracture involving the T10 vertebral body with associated anterior vertebral widening without significant retropulsion. No additional acute fractures are appreciated. Vertebral plasty/kyphoplasty changes are present at multiple levels involving the thoracic and lumbar spine. -Prior history of compression fractures status post kyphoplasties at T12, L1 and L5. -Continue pain management with: Acetaminophen 975 mg every 8 hours schedule for mild pain, oxycodone 5 mg every 4 hours as needed for moderate to severe pain, and Dilaudid 0.5 mg IV every 6 hours as needed for severe breakthrough pain. -Consulted orthopedic surgery, Dr. Marin, who performed T7 through L2 posterior instrumentation, open reduction of T10 fracture, T9 through 11 posterior fusion, and Iliac crest bone graft aspirate 2. Probable acute ileus versus severe constipation, present on admission. Resolving. -Patient describes abdominal pain for 1 week with increasing distention and no bowel movement or flatus. -Repeat abdominal series demonstrated non-obstructive bowel gas pattern and moderate amount of stool in colon consistent with possible ileus. -CT of the abdomen pelvis finds no evidence of bowel obstruction, no cholelithiasis with no basilia cholestatic inflammation, known renal calculi or hydronephrosis, no obstructing stone, several punctate layering stones in the urinary bladder. Large stool burden. -Continue bowel regimen with Colace 100 mg twice daily, polyethylene glycol 17 g daily, bisacodyl 10 mg suppository and/or mineral oil enema as needed for constipation. -Consider repeat abdominal series and possible small-bowel follow-through if not moving bowels postoperatively. 3. Possible Proteus UTI, present on admission. Active. -Patient complained of brief dysuria but has Miguel catheter in place. Patient also has intermittent confusion likely related to narcotic administration but possibly due to UTI. -Initial WBC 18.8 and trended down to 13.6 but now back up to 16.5. Plan to add procalcitonin to morning labs. Continue to monitor WBC and possibly procalcitonin. -Patient received Ancef intraoperatively and plan to give ceftriaxone 2 g IV daily to treat possible Proteus UTI. 4. Possible ESDRAS on chronic kidney disease stage 3, present on admission. Possible ESDRAS resolved. -Secondary to decreased PO intake, severe constipation, and UTI. -Initial creatinine 1.4. Unclear baseline creatinine and seems variable. Cr eatinine now down to 1.10. -Continue to avoid nephrotoxic agents and optimize renal perfusion. -Continue to monitor renal function daily. 5. Acute hypoxemic respiratory failure, secondary to fluid overload, not present on admission. Resolved. -Patient received IV fluids at 125 mL/hr for several hours which has been discontinued. Patient has a history of systolic CHF which resolved with medical management on last echo 05/2019. -Chest x-ray demonstrated mild pulmonary edema. -Ordered furosemide 40 mg IV x1 with 900 cc urine output. Plan to continue to reassess need for diuresis. -Continue supplemental oxygen as necessary to maintain oxygen saturations 88- 92%. Patient no longer requiring oxygen. He does occasionally desaturate while sleeping and may use oxygen as necessary. 6. COPD and restrictive lung disease, present on admission. Stable. -Does not represent acute COPD exacerbation. Patient tachypneic on arrival at 22 breaths per minute saturating 92% on room air. Patient is nonsmoker. Patient was scattered bilateral wheezing on exam with SpO2 dropping to 90 % on room air. -Previous pulmonary function test to 01/05/2020 due to wheezing with findings of moderate obstructive airway disease, severe restriction of the parenchyma, moderate to severe diffusion deficit. -Continue respiratory therapy evaluation and treatment. Continue supplemental oxygen to maintain oxygen saturation 88-92%. Patient no longer requiring oxygen. Continue DuoNebs every 4 hours while awake and albuterol nebulizer every 2 hours as needed for shortness of breath or wheezing. 7. Paroxysmal atrial fibrillation, chronic, present on admission. Stable. -Now in sinus rhythm with controlled rate. -No complaints of chest pain. -Held Xarelto for surgical intervention plan to restart tomorrow per Orthopedic surgery. -Continue home metoprolol succinate 50 mg daily and amiodarone 200 mg daily. 8. Hypertension, chronic, present on admission. Stable. -Initial blood pressure 139/76, at time of encounter blood pressure is 79/53. -Initially held lisinopril 5 mg daily as patient's blood pressure was labile and now preoperatively to avoid postoperative hypotension. Continue metoprolol succinate 50 mg daily. 9. Hyperlipidemia, chronic, stable. -Continue home atorvastatin 20 mg daily. Code status: Full code VTE prophylaxis: SCDs, patient is on Xarelto. Disposition: Patient likely to discharge to retirement facility for rehabilitation in the 1-2 days once he is recovered from Orthopedic surgery and moving his bowels.
[2019-09-12] MEDS: lisinopriL 5 MG TABLET PO (14:41)
[2019-09-12] MEDS: CEFTRIAXONE 2 GM/50 ML FROZ.PIGGY IV (14:41)
[2019-09-12] MEDS: MAGNESIUM CITRATE 300 ML SOLUTION 150 ML PO (14:42)
[2019-09-12 14:49] LABS: Procalcitonin 0.19 ng/mL (<0.5)
--- NOTE | 2019-09-12 16:15 | PT.IPTN ---
Current Diagnoses Ileus, unspecified (09/09/19) Surgery Performed Operation Date: 09/10/19 19:00 Actual Procedures p T7-L2 Posterior Fusion - Leodan Marin MD Physical Therapy Treatment Note M2 PT-IP Current Condition Start: 09/09/19 09:04 Freq: NEEDED Status: Active Protocol: Document 09/11/19 11:00 AW (Rec: 09/11/19 11:42 AW [email or web address]) Physical Therapy Current Condition Current Condition Evaluation Date 09/11/19 Treatment Diagnosis T7-L2 posterior instrumentation, recurrent falls, impaired mobility Onset Date 09/09/19 Precautions Lumbar Precautions Log Roll,No Twisting,Limit Bending,Lifting Restriction of 10 lbs,Gait Belt above Incisional Area Brace TLSO for all out of bed mobility Other Precautions osteopenia Weight Bearing Status Weight Bearing Status Full Weight Bearing M3 PT-IP Subjective Start: 09/09/19 09:04 Freq: NEEDED Status: Active Protocol: Document 09/12/19 16:15 DLM (Rec: 09/12/19 17:06 DLM [email or web address]) Subjective Physical Therapy Visit Type Type Treatment Note Visit Start Time 16:00 Visit Stop Time 16:15 Total Visit Minutes 15 Number of TYPIST Visits 0 Physical Therapy Visit Comments Patient Comments He can not clearly state what he wants at this time Therapy Pain Assessment Pain When Pain Assessed During Mobility Pain Present Pain Present Unable to Respond FLACC Pain Scale Face Occasional grimace/frown Legs Uneasy, restless, tense Activity Squirming,shifting Cry Moans/whimpers/complains Consolability Reassurable with touch FLACC Total 5 Location Back Intensity 5 Scale Used FLACC Description With Movement Pain Behaviors Moaning,Wincing Pain Management Techniques Re-positioning M4 PT-IP Mobility and Gait Start: 09/09/19 09:04 Freq: NEEDED Status: Active Protocol: Document 09/12/19 16:15 DLM (Rec: 09/12/19 17:06 DLM [email or web address]) PT-Bed Mobility Assessment Rolling Level of Assist Maximal Assistance,2 Person Assistance Scooting Scooting Up and Down in Bed Dependent PT-Transfer Assessment Equipment Transfer Assistive Device Mechanical Lift Transfers Transfer Destination Bed Transfer Technique Mechanical Lift Transfer Ability Level of Assist 2 Person Assistance Comments Mobility Comments Pt kept his eyes closed throughout this visit, he showed minimal participation, he sat up in the recliner since his morning therapy visit, pt returned to bed this visit Gait Assessment Comments Gait Comments pt unable PT-Balance Assessment Sitting Balance and Reactions Static Sitting Balance Ability Poor Dynamic Sitting Balance Ability Poor Comments Other Balance Tests/Deviations/Treatment he leans right seated even in : the recliner, he is dependent for doffing the TLSO M5 PT-IP Objective Assessments Start: 09/09/19 09:04 Freq: NEEDED Status: Active Protocol: Document 09/11/19 11:00 AW (Rec: 09/11/19 11:42 AW [email or web address]) Orientation Orientation/Cognition Level of Alertness Confusional State Orientation Name,Age,Situation Safety Awareness Decreased Safety Awareness Comments Pt is more confused today but admits to understanding he is confused. Gross Range of Motion Upper Extremity ROM Assessment Bilaterally Impaired Impairments Limited R shoulder rotation. Lacking full elbow extension. Lower Extremity ROM Assessment Bilaterally Impaired Strength Lower Extremity Strength Assessment Bilaterally Impaired Hip 3-/5 Knee 4-/5 Ankle 3+/5 M6 PT-IP Treatment Start: 09/09/19 09:04 Freq: NEEDED Status: Active Protocol: Document 09/12/19 16:15 DLM (Rec: 09/12/19 17:06 DLM [email or web address]) Physical Therapy Treatment Education Education Provided Safety M7 PT-IP Assessment and Plan Start: 09/09/19 09:04 Freq: NEEDED Status: Active Protocol: Document 09/12/19 16:15 DLM (Rec: 09/12/19 17:06 DLM [email or web address]) PT Summary Assessment and Plan Summary Impairments Pain,ROM,Strength,Balance,Bed Mobility,Transfers,Gait, Activity Tolerance Progress Towards Goals Slow Progress due to Activity Tolerance Assessment Summary Don continues to be confused. He keeps his eyes closed but is not sleeping. He sat up in the recliner well today with the TLSO. Had to use the mechanical lift to transfer him back to bed due to his fatigue and difficulty participating. Continue to recommend SNF rehab at discharge. Pt may need to decrease his frequency of physical therapy treatments to once a day due to his low activity tolerance. Will continue to monitor this and decide tomorrow. Goals Bed Mobility Goal Minimal Assistance Transfer Goal Minimal Assistance,Front Wheeled Walker Gait Goal Minimal Assistance,Front Wheel Walker Gait Distance 75 Days to Meet Goals 10 Frequency of Treatment Frequency Of Treatment Twice a Day Treatment Plan Physical Therapy Treatment Plan Bed Mobility Training,Transfer Training,Gait Training, Therapeutic Exercise,Balance Retraining,Post Op Education, Discharge Planning,Hot or Cold Pack,Neuromuscular Re-ed Other Recommendations and Next Treatment TLSO applied in sitting, start Focus with brace as low as possible since it rides up easily on pt Recommendations To Nursing Amount of Assist Needed 2 Person Assist,Mechanical Lift Discharge Recommendations PT Discharge Recommendations SNF Rehab Transportation Needs at Discharge Stretcher/Ambulance
[2019-09-12] MEDS: SENNOSIDES 8.6 MG TABLET 17.2 MG PO (21:42)
[2019-09-13] VITALS (12 sets, daily range): BP systolic 100–125; BP diastolic 50–68; PULSE 61–71; RESP 18–21; TEMP 35.9–37.4; O2SAT 66–100
[2019-09-13] MEDS: OXYCODONE IR 5 MG TABLET PO (00:14)
--- NOTE | 2019-09-13 03:37 | PC.NURSE ---
Addendum entered by Sylvie Valero R.N. 09/13/19 04:40: When VS checked SALES DEVELOPMENT COORDINATOR reports pulse oximetry only at 80. When RN checked sat was as low as 66 so placed on oxygen with NC prongs in mouth as patient is mouth breathing and currently is 93% and oxygen is at 2L/min Original Note: Patient seen and assessed at 0015. Is oriented only to self, birthdate and why he is in the hospital. Breath sounds diminished throughout with RA sat of 95%; does get SOB with conversation. HRR. Denies nausea. BT hypoactive and has not had a BM since 09/09; scheduled for a SBFT in the morning. Still has indwelling catheter; urine clear yellow. Needing to be repositioned q2h as not moving himself. Dressing to back is intact but noted to have large areas of serosanguinous drainage which are now outlined. Does complain of 4/10 mid back pain so was medicated with Oxycodone. Bruising noted on bilateral UE and left LE. New, scabbed skin tear on posterior left hand. Perianal area also noted to be reddened, but without breakdown so barrier cream applied. Wearing bilateral calf SCD's. Fall risk score is high and bed alarm is activated. Gait not assessed as not out of bed; when up is to wear TLSO brace
--- NOTE | 2019-09-13 07:38 | P.PN_ITS ---
Subjective Subjective Date Patient Seen: 09/13/19 Time Patient Seen: 07:39 Interval history: He was having some pain last night. He was given 1 oxycodone and has been quite somnolent since. Exam Vital Signs (past 8 hours): - 09/13/19 00:00 09/13/19 04:15 09/13/19 04:30 Temperature 99.4 F 97.8 F Pulse Rate 69 69 Respiratory Rate 21 20 Blood Pressure 104/51 L 115/50 L Pulse Oximetry 95 93 66 L 09/13/19 04:39 Temperature Pulse Rate Respiratory Rate Blood Pressure Pulse Oximetry 93 Oxygen Delivery Method Nasal Cannula Oxygen Flow Rate 2 Const Other: Arousable, quickly falls right back to sleep Back/Spine/Pelvis Other: Mild to moderate drainage. Unable to get a neurologic exam due to sedation Objective Labs Result Diagrams: 09/12/19 05:07 09/12/19 05:07 Labs: Laboratory Results - last 24 hr 09/12/19 05:07 Procalcitonin 0.19 Assessment & Plan Post-op Postoperative Procedures: Procedures Operation Date: 09/10/19 19:00 Actual Procedures Side Surgeon p T7-L2 Posterior Fusion Leodan Marin MD stable after ORIF of T10 fracture. Continue to mobilize with therapy. Resolving ileus, still waiting bowel movement. Probable urinary infection now being treated for Proteus Anticipate discharge to half-way when the above problems have resolved.
--- NOTE | 2019-09-13 08:00 | DI.RAD.S_ITS ---
PROCEDURE: FL SMALL BOWEL FOLLOW THROUGH INDICATIONS: PROB ILEUS COMPARISON: None. FINDINGS: KUB: Preprocedural facilities technician film demonstrates a normal bowel gas pattern. Post surgical changes in the thoracolumbar spine and midline skin juan pablo. Multilevel kyphoplasty/vertebroplasty. No suspicious abdominal calcifications. Visualized solid organ contours appear normal. No suspicious bony abnormalities. Small bowel: There is normal transit time of barium through the small bowel. Small bowel loops are of normal caliber throughout. Mucosal folds are smooth and of normal thickness. No strictures, intraluminal masses, or extrinsic mass effects are noted. IMPRESSION: Negative examination. No definite transition point identified. Normal contrast transit time Dictated by: Collin Lion M.D. on 09/13/2019 at 15:40 Approved by: Collin Lion M.D. on 09/13/2019 at 15:44
[2019-09-13 08:20] LABS: Add Manual Diff / Slide Review NO; Basophils Absolute Auto 0 /uL (0-100); Basophils Percent Auto 0.3 % (0-2); Eosinophils Absolute Auto 0 /uL (0-450); Eosinophils Percent Auto 0.1 % (2-4); Hematocrit 33.8 % (41-53); Hemoglobin 11.1 g/dL (13.5-17.5); Lymphocytes Absolute Auto 600 /uL (1100-4500); Mean Corpuscular HGB Conc 32.8 % (30-36); Mean Corpuscular Hemoglobin 31.2 PG (26-34); Mean Corpuscular Volume 95.2 fL (80-100); Monocytes Absolute Auto 1600 /uL (0-900); Monocytes Percent Auto 10.2 % (3-14); Neutrophils Absolute Auto 13600 /uL (1500-7000); Neutrophils Percent Auto 85.4 % (50-75); Platelet Count 166 X10^3/uL (150-400); Red Blood Cell Count 3.55 X10^6/uL (4.5-5.9); Red Cell Distribution Width 14.2 % (11.6-14.8); White Blood Cell Count 15.9 X10^3/uL (4.5-11.0)
[2019-09-13 08:39] LABS: Alanine Aminotransferase 47 IU/L (<50); Albumin 2.8 g/dL (3.5-5.0); Albumin Globulin Ratio 0.9 (1.0-2.8); Alkaline Phosphatase 75 U/L (38-126); Aspartate Aminotransferase 97 IU/L (17-59); BUN Creatinine Ratio 40.9 (6-22); Bilirubin Total 0.5 mg/dL (0.2-1.3); Blood Urea Nitrogen 45 mg/dL (9-20); Calcium 7.8 mg/dL (8.4-10.2); Carbon Dioxide 32 mmol/L (22-32); Chloride 94 mmol/L (98-107); Estimated Glomerular Filt Rate > 60.0 mL/min (>60); Globulin 3.2 g/dL (1.7-4.1); Glucose 110 mg/dL (80-110); HEMOLYSIS < 15 (0-50); Potassium 4.9 mmol/L (3.4-5.1); Sodium 130 mmol/L (137-145)
--- NOTE | 2019-09-13 08:49 | P.PN_ITS ---
Subjective Subjective Date Patient Seen: 09/13/19 Interval history: Tboias Sesay is an 84-year-old male with a past medical history significant for coronary artery disease, hypertension, hyperlipidemia, paroxysmal atrial fibrillation on Xarelto, benign prostatic hypertrophy, gastroesophageal reflux disease, osteoarthritis and multiple level thoracic and lumbar compression fractures who presented to the ED with progressive worsening generalized weakness. The patient is lying in bed and appears comfortable. He is irritable but reports he feels better since having mutiple BMs since his small-bowel follow- through. He continues to have intermittent confusion and likely has mild cog nitive impairment versus dementia. His chronic mild conversational dyspnea is unchanged. He endorses back pain but is controlled with pain medication. Miguel catheter was removed and he relays he hasn't urinated since but per nursing he has been incontinent. He is eliminating without difficulty. Continue physical and occupational therapy. Exam Vital Signs (past 8 hours): - 09/13/19 04:15 09/13/19 04:30 09/13/19 04:39 Temperature 97.8 F Pulse Rate 69 Respiratory Rate 20 Blood Pressure 115/50 L Pulse Oximetry 93 66 L 93 Oxygen Delivery Method Nasal Cannula Oxygen Flow Rate 2 Narrative Exam Narrative: General: Elderly gentleman lying in bed and in no acute distress, well- developed, well-nourished, intermittently confused irritable. HEENT: Normocephalic, atraumatic. External ears without defect. Pupils equal, round, and reactive to light . Anicteric sclerae, moist conjunctivae, and no lid lag. Oropharynx free of erythema and cobble stoning with moist mucosa. Neck: Supple with full range of motion. No jugular venous distension. No lymphadenopathy or thyromegaly. Cardiovascular: Heart sounds distant but appears to be regular rhythm and rate without murmurs, rubs, or gallops appreciated. Pulmonary: Diminished throughout but clear to auscultation bilaterally. No crackle, wheeze or rhonchi. No use of accessory muscles and mild conversational dyspnea that is chronic per patient. Abdomen: Soft, no longer distended, nontender, and bowel sounds hyperactive. No hepatosplenomegaly or masses appreciated. Back: Dressing in place C/D/I without surrounding erythema or edema. Extremities: No clubbing, cyanosis, or edema. Skin: Normal temperature, turgor, and texture; no rash, ulcers, or subcutaneous nodules appreciated. Neurological: Cranial nerves grossly intact. Psychiatric: Irritable mood and affect. Alert oriented x2 with intermittent confusion likely due to narcotic administration versus mild cognitive impairment. Objective Labs Result Diagrams: 09/13/19 08:10 09/13/19 08:10 Labs: Laboratory Results - last 24 hr 09/12/19 09/13/19 09/13/19 05:07 08:10 08:10 WBC 15.9 H RBC 3.55 L Hgb 11.1 L Hct 33.8 L MCV 95.2 MCH 31.2 MCHC 32.8 RDW 14.2 Plt Count 166 Neut % (Auto) 85.4 H Lymph % (Auto) 4.0 L [place] % (Auto) 10.2 Eos % (Auto) 0.1 L Baso % (Auto) 0.3 Neut # (Auto) 23607 H Lymph # (Auto) 600 L [place] # (Auto) 1600 H Eos # (Auto) 0 Baso # (Auto) 0 Sodium 130 L Potassium 4.9 Chloride 94 L Carbon Dioxide 32 BUN 45 H Creatinine 1.10 Estimated GFR > 60.0 BUN/Creatinine Ratio 40.9 H Glucose 110 Calcium 7.8 L Total Bilirubin 0.5 AST 97 H ALT 47 Alkaline Phosphatase 75 Total Protein 6.0 L Albumin 2.8 L Globulin 3.2 Albumin/Globulin Ratio 0.9 L Procalcitonin 0.19 Assessment & Plan Assessment & Plan narrative: Tobias Sesay is an 84-year-old male with a past medical history significant for coronary artery disease, hypertension, hyperlipidemia, paroxysmal atrial fibrillation on Xarelto, benign prostatic hypertrophy, gastroesophageal reflux disease, osteoarthritis and multiple level thoracic and lumbar compression fractures who presented to the ED with progressive worsening generalized weakness. 1. 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 Active. -Patient presented with progressive worsening back pain without significant trauma other than he slid recently from the bed to the floor several days before admission. -CT abdomen and pelvis without contrast demonstrated suspect acute fracture of T10. There is prevertebral soft tissue stranding in the level of aortic hiatus. A small amount of fluid in the area is most likely a hematoma. -CT thoracic spine without contrast demonstrated age indeterminate irregular fracture involving the T10 vertebral body with associated anterior vertebral wid ening without significant retropulsion. No additional acute fractures are appreciated. Vertebral plasty/kyphoplasty changes are present at multiple levels involving the thoracic and lumbar spine. -Prior history of compression fractures status post kyphoplasties at T12, L1 and L5. -Continue pain management with: Acetaminophen 975 mg every 8 hours schedule for mild pain, oxycodone 5 mg every 4 hours as needed for moderate to severe pain, and Dilaudid 0.5 mg IV every 6 hours as needed for severe breakthrough pain. -Consulted orthopedic surgery, Dr. Marin, who performed T7 through L2 posterior instrumentation, open reduction of T10 fracture, T9 through 11 posterior fusion, and Iliac crest bone graft aspirate 2. Acute ileus, present on admission. Resolved. -Patient describes abdominal pain for 1 week with increasing distention and no bowel movement or flatus. -Repeat abdominal series demonstrated non-obstructive bowel gas pattern and moderate amount of stool in colon consistent with possible ileus. -CT of the abdomen pelvis finds no evidence of bowel obstruction, no cholelithiasis with no basilia cholestatic inflammation, known renal calculi or hydronephrosis, no obstructing stone, several punctate layering stones in the urinary bladder. Large stool burden. -Continue bowel regimen with Colace 100 mg twice daily, polyethylene glycol 17 g daily, bisacodyl 10 mg suppository and/or mineral oil enema as needed for constipation. -Performed small-bowel follow-through which did not demonstrate SBO and was therapeutic and ileus resolved. 3. Possible Proteus UTI, present on admission. Active. -Patient complained of brief dysuria but has Miguel catheter in place. Patient also has intermittent confusion likely related to narcotic administration but possibly due to UTI. -Initial WBC 18.8 and trended down to 13.6 but now back up to 16.5. Plan to add procalcitonin to morning labs. Continue to monitor WBC and possibly procalcitonin. -Patient received Ancef intraoperatively and plan to give ceftriaxone 2 g IV daily to treat possible Proteus UTI. 4. Possible ESDRAS on chronic kidney disease stage 3, present on admission. Possible ESDRAS resolved. -Secondary to decreased PO intake, severe constipation, and UTI. -Initial creatinine 1.4. Unclear baseline creatinine and seems variable. Creatinine now down to 1.10. -Continue to avoid nephrotoxic agents and optimize renal perfusion. -Continue to monitor renal function daily. 5. Acute hypoxemic respiratory failure, secondary to fluid overload, not present on admission. Resolved. -Patient received IV fluids at 125 mL/hr for several hours which has been discontinued. Patient has a history of systolic CHF which resolved with medical management on last echo 05/2019. -Chest x-ray demonstrated mild pulmonary edema. -Ordered furosemide 40 mg IV x1 with 900 cc urine output. Plan to continue to reassess need for diuresis. -Continue supplemental oxygen as necessary to maintain oxygen saturations 88- 92%. Patient no longer requiring oxygen. He does occasionally desaturate while sleeping and may use oxygen as necessary. 6. COPD and restrictive lung disease, present on admission. Stable. -Does not represent acute COPD exacerbation. Patient tachypneic on arrival at 22 breaths per minute saturating 92% on room air. Patient is nonsmoker. Patient was scattered bilateral wheezing on exam with SpO2 dropping to 90 % on room air. -Previous pulmonary function test to 01/05/2020 due to wheezing with findings of moderate obstructive airway disease, severe restriction of the parenchyma, moderate to severe diffusion deficit. -Continue respiratory therapy evaluation and treatment. Continue supplemental oxygen to maintain oxygen saturation 88-92%. Patient no longer requiring oxygen. Continue DuoNebs every 4 hours while awake and albuterol nebulizer every 2 hours as needed for shortness of breath or wheezing. 7. Paroxysmal atrial fibrillation, chronic, present on admission. Stable. -Now in sinus rhythm with controlled rate. -No complaints of chest pain. -Held Xarelto for surgical intervention plan to restart tomorrow per Orthopedic surgery. -Continue home metoprolol succinate 50 mg daily and amiodarone 200 mg daily. 8. Hypertension, chronic, present on admission. Stable. -Initial blood pressure 139/76, at time of encounter blood pressure is 79/53. -Initially held lisinopril 5 mg daily as patient's blood pressure was labile and now preoperatively to avoid postoperative hypotension. Continue metoprolol succinate 50 mg daily. 9. Hyperlipidemia, chronic, stable. -Continue home atorvastatin 20 mg daily. Code status: Full code VTE prophylaxis: SCDs, patient is on Xarelto. Disposition: Patient likely to discharge to retirement facility for rehabilitation possibly tomorrow.
[2019-09-13 08:55] LABS: Procalcitonin 0.23 ng/mL (<0.5)
[2019-09-13] MEDS: CELECOXIB 200 MG CAPSULE PO ×2 (10:39→21:20)
[2019-09-13] MEDS: ATORVASTATIN 20 MG TABLET PO (10:40)
[2019-09-13] MEDS: lisinopriL 5 MG TABLET PO (10:40)
[2019-09-13] MEDS: METOPROLOL ER 50 MG TABLET PO (10:40)
[2019-09-13] MEDS: polyethylene glycoL 3350 17 GM POWD.PACK PO (10:41)
[2019-09-13] MEDS: NYSTATIN POWDER 15GM 1 APPLIC TOP ×2 (10:41→21:17)
[2019-09-13] MEDS: AMIODARONE 200 MG TABLET PO (10:41)
[2019-09-13] MEDS: DOCUSATE 100 MG CAPSULE PO (10:41)
--- NOTE | 2019-09-13 10:41 | CM.DPNOTE ---
Addendum entered by Iliana Garcia LPN 09/13/19 13:46: Spoke with ortho JULIANA Silva who confirmed that she did discuss the d/c dispo option of INPT rehab and that he agreed this would be appropriate. PT tried to see pt today but he is stooling frequently now and DAVID Tirado advised her not to see pt today. Was updated by JULIANNE henry/Brie who stated that her epic cadence analyst had reviewed the case, has ok'd pt for acceptance when he is stooling and is able to tolerate the 3 hours of therapy a day...in short periods of PT and OT that would add up to 3 hours in total throughout the day. She does caution that pt would be accepted tomorrow but their new epic cadence analyst will not be accepting any pt's over the weekend so if not ready tomorrow they would take pt Tuesday. Addendum entered by Iliana Garcia LPN 09/13/19 11:39: Have spoken now to therapy team to update them re the INPT rehab consideration and have left a vm for ortho JULIANA Silva who is expected to round on pt later today (per DAVID Bravo). Met now with Radha and pt. Pt is agreeable to the INPT plan and Radha expresses her great relief that the facility is reviewing his case for consideration of acceptance. Will update hospitalist team when either Dr. Triplett or Dr. Hammond are available. Addendum entered by Iliana Garcia LPN 09/13/19 11:24: Deeper review of EMR is done: note the T10 is was further defined by Dr. Marin as a T10 unstalbe 3 column injury that was not stable with bracing. Surgery was done by Dr. Marin on just after midnight on 09/11: T7-L2 posterior instrumentation. ORIF T10. t9 through 11 posterior fusion. Iliac crest bone graft aspirate. Addendum entered by Iliana Garcia LPN 09/13/19 11:07: Original Note: DCP: assessment: case received and discussed in Team Rounds. EMR from 09/10 and > is reviewed. Followed up with a phone call to pt's spouse Radha. She states that [facility] and did [facility] tours and the snf setting is not acceptable. She was at [facility] INPT rehab center this morning and talked with someone (she did not get name) re ? of swing bed or INPT at the facility and INPT was recommended. She wishes this to be started NGUYEN. Referral is in now to Brie Rzao/BRAXTON who indicated the referral seemed appropriate for that setting. Will fax specifics now and follow up later with pt and Radha (who will be at the hospital soon). PT is recovering from an ileus and being treated for a UTI in addition to his T10 compression fracture. His goal after inpt rehab is to return to the home setting.
[2019-09-13] MEDS: SODIUM CHLORIDE 0.9% FLUSH 10 ML IV ×2 (10:42→21:16)
--- NOTE | 2019-09-13 11:52 | PT-IP ANOTE ---
Patient having multiple BM's with nursing this morning. Pt fatigued from frequently being turned and cleaned by nursing. Will hold physical therapy this morning and check back in the afternoon.
[2019-09-13] MEDS: CEFTRIAXONE 2 GM/50 ML FROZ.PIGGY IV (12:48)
--- NOTE | 2019-09-13 16:20 | PT.IPTN ---
Current Diagnoses Ileus, unspecified (09/09/19) Surgery Performed Operation Date: 09/10/19 19:00 Actual Procedures p T7-L2 Posterior Fusion - Leodan Marin MD Physical Therapy Treatment Note M2 PT-IP Current Condition Start: 09/09/19 09:04 Freq: NEEDED Status: Active Protocol: Document 09/11/19 11:00 AW (Rec: 09/11/19 11:42 AW [id number]) Physical Therapy Current Condition Current Condition Evaluation Date 09/11/19 Treatment Diagnosis T7-L2 posterior instrumentation, recurrent falls, impaired mobility Onset Date 09/09/19 Precautions Lumbar Precautions Log Roll,No Twisting,Limit Bending,Lifting Restriction of 10 lbs,Gait Belt above Incisional Area Brace TLSO for all out of bed mobility Other Precautions osteopenia Weight Bearing Status Weight Bearing Status Full Weight Bearing M3 PT-IP Subjective Start: 09/09/19 09:04 Freq: NEEDED Status: Active Protocol: Document 09/13/19 16:20 DLM (Rec: 09/13/19 18:11 DLM [email or web address]) Subjective Physical Therapy Visit Type Type Treatment Note Visit Start Time 15:20 Visit Stop Time 16:20 Total Visit Minutes 60 Number of SHOW HOST/HOSTESS Visits 0 Physical Therapy Visit Comments Patient Comments He is willing to get up to chair today, he frequently feels he needs to have BM Therapy Pain Assessment Pain When Pain Assessed During Mobility Pain Present Pain Present Unable to Respond FLACC Pain Scale Face Occasional grimace/frown Legs Uneasy, restless, tense Activity Squirming,shifting Cry Moans/whimpers/complains Consolability Reassurable with touch FLACC Total 5 Location Back Intensity 5 Scale Used FLACC Pain Management Techniques Re-positioning M4 PT-IP Mobility and Gait Start: 09/09/19 09:04 Freq: NEEDED Status: Active Protocol: Document 09/13/19 16:20 DLM (Rec: 09/13/19 18:11 DLM [email or web address]) PT-Bed Mobility Assessment Rolling Type of Rolling Log Rolling,Roll to Right Level of Assist Maximal Assistance,2 Person Assistance Supine to Sit Supine to Sit Moderate Assistance,2 Person Assistance Scooting Scooting to Edge of Bed Maximum Assistance PT-Transfer Assessment Sit to and From Stand Sit to and from Stand Moderate Assistance,Maximum Assistance,2 Person Assistance ,Use of Upper Extremities Equipment Transfer Assistive Device Gait Belt,Front Wheeled Walker Transfers Transfer Destination Chair,Bedside Commode Transfer Technique Mechanical Lift Transfer Ability Level of Assist Total Assistance Comments Mobility Comments pt stood from edge of bed with FWW and two person assist for 3 trails, he stood from bedside commode for 2 trials for toileting issues with fWW and 2 person assist. Mechanical lift used for all transfers due to his limited standing tolerance and inability to take steps. Pt able to stand for 5-10 sec at a time. Pt left up in recliner with chair alarm in use. Coordinated care with nursing for toileting issues. Gait Assessment Comments Gait Comments pt unable PT-Balance Assessment Sitting Balance and Reactions Static Sitting Balance Ability Fair Dynamic Sitting Balance Ability Poor Standing Balance and Reactions Static Standing Balance Ability Poor Dynamic Standing Balance Ability Poor Device Used FWW Comments Other Balance Tests/Deviations/Treatment he leans right in sitting even : in the recliner. He is dependent for donning his TLSO . Applied the TLSO in sitting at edge of bed. M5 PT-IP Objective Assessments Start: 09/09/19 09:04 Freq: NEEDED Status: Active Protocol: Document 09/11/19 11:00 AW (Rec: 09/11/19 11:42 AW [id number]) Orientation Orientation/Cognition Level of Alertness Confusional State Orientation Name,Age,Situation Safety Awareness Decreased Safety Awareness Comments Gross Range of Motion Upper Extremity ROM Assessment Bilaterally Impaired Impairments Limited R shoulder rotation. Lacking full elbow extension. Lower Extremity ROM Assessment Bilaterally Impaired Strength Lower Extremity Strength Assessment Bilaterally Impaired Hip 3-/5 Knee 4-/5 Ankle 3+/5 M6 PT-IP Treatment Start: 09/09/19 09:04 Freq: NEEDED Status: Active Protocol: Document 09/13/19 16:20 DLM (Rec: 09/13/19 18:11 DLM [email or web address]) Physical Therapy Treatment Education Education Provided Safety M7 PT-IP Assessment and Plan Start: 09/09/19 09:04 Freq: NEEDED Status: Active Protocol: Document 09/13/19 16:20 DLM (Rec: 09/13/19 18:11 DLM [email or web address]) PT Summary Assessment and Plan Summary Impairments Pain,ROM,Strength,Balance,Bed Mobility,Transfers,Gait, Activity Tolerance Progress Towards Goals Slow Progress due to Activity Tolerance Assessment Summary Don is more alert today and can participate in conversations appropriately. He still fatigues quickly with light activity. His back pain decreased with application of his TLSO. Pt up to the recliner this visit. He still closes eyes often but is not sleeping. He does keep his eyes open longer than yesturday. Pt continues to have small amounts of liquid BM this visit. Goals Bed Mobility Goal Minimal Assistance Transfer Goal Minimal Assistance,Front Wheeled Walker Gait Goal Minimal Assistance,Front Wheel Walker Gait Distance 75 Days to Meet Goals 10 Frequency of Treatment Frequency Of Treatment Twice a Day Treatment Plan Physical Therapy Treatment Plan Bed Mobility Training,Transfer Training,Gait Training, Therapeutic Exercise,Balance Retraining,Post Op Education, Discharge Planning,Hot or Cold Pack,Neuromuscular Re-ed Other Recommendations and Next Treatment TLSO applied in sitting, start Focus with brace as low as possible since it rides up easily on pt Recommendations To Nursing Amount of Assist Needed 2 Person Assist,Mechanical Lift Discharge Recommendations PT Discharge Recommendations SNF Rehab,Acute Rehab Transportation Needs at Discharge Stretcher/Ambulance
[2019-09-13] MEDS: TRAMADOL 50 MG TABLET PO (16:23)
[2019-09-14] VITALS (7 sets, daily range): BP systolic 112–121; BP diastolic 60–63; PULSE 61–63; RESP 16–18; TEMP 36.3–36.8; O2SAT 94–98
[2019-09-14] MEDS: TRAMADOL 50 MG TABLET PO ×4 (02:22→11:50)
--- NOTE | 2019-09-14 02:52 | PC.NURSE ---
Patient is much more alert and oriented tonight; able to state name, birthdate, age, place and year. When discussed why he is in hospital patient didn't know but when told he had fallen he became upset and called RN a liar because he states he has not fallen. Breath sounds diminished but CTA. Is SOB with conversation. On oxygen at 2L/min per NC with sat of 93% earlier and now 95%. HRR. Denies nausea. BT present and had multiple BM's yesterday after SBFT. Earlier this shift voided 100cc in urinal and had a PVR of 164. When repositioned now patient was incontinent of urine. Is needing to be repositioned q2h as not moving himself but will try to help. No change in skin condition. Dressing to back still with old drainage outlined. Have twitching in right LE. Complains of 4/10 back pain and was medicated with Tramadol. CMS is intact. Wearing bilateral calf SCD's. Fall risk score is high and bed alarm is activated.
[2019-09-14 06:03] LABS: Add Manual Diff / Slide Review NO; Basophils Absolute Auto 0 /uL (0-100); Basophils Percent Auto 0.1 % (0-2); Eosinophils Absolute Auto 100 /uL (0-450); Eosinophils Percent Auto 0.4 % (2-4); Hematocrit 33.8 % (41-53); Lymphocytes Absolute Auto 700 /uL (1100-4500); Lymphocytes Percent Auto 4.9 % (25-40); Mean Corpuscular HGB Conc 32.4 % (30-36); Mean Corpuscular Volume 95.6 fL (80-100); Monocytes Absolute Auto 1600 /uL (0-900); Monocytes Percent Auto 10.6 % (3-14); Neutrophils Absolute Auto 12700 /uL (1500-7000); Platelet Count 205 X10^3/uL (150-400); Red Blood Cell Count 3.54 X10^6/uL (4.5-5.9); Red Cell Distribution Width 14.1 % (11.6-14.8); White Blood Cell Count 15.1 X10^3/uL (4.5-11.0)
[2019-09-14 06:10] LABS: Alanine Aminotransferase 81 IU/L (<50); Albumin 2.9 g/dL (3.5-5.0); Albumin Globulin Ratio 0.9 (1.0-2.8); Alkaline Phosphatase 85 U/L (38-126); Aspartate Aminotransferase 109 IU/L (17-59); Bilirubin Total 0.5 mg/dL (0.2-1.3); Blood Urea Nitrogen 36 mg/dL (9-20); Calcium 7.7 mg/dL (8.4-10.2); Carbon Dioxide 36 mmol/L (22-32); Chloride 97 mmol/L (98-107); Estimated Glomerular Filt Rate > 60.0 mL/min (>60); Globulin 3.4 g/dL (1.7-4.1); Glucose 108 mg/dL (80-110); HEMOLYSIS < 15 (0-50); Magnesium 2.8 mg/dL (1.6-2.3); Potassium 4.3 mmol/L (3.4-5.1); Sodium 135 mmol/L (137-145); Total Protein 6.3 g/dL (6.3-8.2)
--- NOTE | 2019-09-14 07:39 | PM.PNPO.1 ---
Subjective Subjective Date Patient Seen: 09/14/19 Time Patient Seen: 07:39 Interval history: Still complaining of back pain, 01/24. No leg pain. Will awaken to answer questions but goes back to sleep. He reports he had a bowel movement yesterday. Exam Vital Signs (past 8 hours): - 09/13/19 23:50 09/14/19 02:30 09/14/19 04:01 Temperature 98.8 F 97.3 F L Pulse Rate 61 61 Respiratory Rate 20 16 Blood Pressure 125/68 112/60 Pulse Oximetry 93 95 96 09/14/19 06:30 Temperature Pulse Rate Respiratory Rate Blood Pressure Pulse Oximetry 94 Oxygen Delivery Method Nasal Cannula Oxygen Flow Rate 2 Const Orientation: alert and oriented x3 Back/Spine/Pelvis Other: 5/5 motor both lower extremities. Objective Labs Result Diagrams: 09/14/19 05:15 09/14/19 05:15 Labs: Laboratory Results - last 24 hr 09/13/19 09/13/19 09/13/19 08:10 08:10 08:10 WBC 15.9 H RBC 3.55 L Hgb 11.1 L Hct 33.8 L MCV 95.2 MCH 31.2 MCHC 32.8 RDW 14.2 Plt Count 166 Neut % (Auto) 85.4 H Lymph % (Auto) 4.0 L [place] % (Auto) 10.2 Eos % (Auto) 0.1 L Baso % (Auto) 0.3 Neut # (Auto) 44679 H Lymph # (Auto) 600 L [place] # (Auto) 1600 H Eos # (Auto) 0 Baso # (Auto) 0 Sodium 130 L Potassium 4.9 Chloride 94 L Carbon Dioxide 32 BUN 45 H Creatinine 1.10 Estimated GFR > 60.0 BUN/Creatinine Ratio 40.9 H Glucose 110 Calcium 7.8 L Magnesium Total Bilirubin 0.5 AST 97 H ALT 47 Alkaline Phosphatase 75 Total Protein 6.0 L Albumin 2.8 L Globulin 3.2 Albumin/Globulin Ratio 0.9 L Procalcitonin 0.23 09/14/19 09/14/19 05:15 05:15 WBC 15.1 H RBC 3.54 L Hgb 11.0 L Hct 33.8 L MCV 95.6 MCH 31.0 MCHC 32.4 RDW 14.1 Plt Count 205 Neut % (Auto) 84.0 H Lymph % (Auto) 4.9 L [place] % (Auto) 10.6 Eos % (Auto) 0.4 L Baso % (Auto) 0.1 Neut # (Auto) 65332 H Lymph # (Auto) 700 L [place] # (Auto) 1600 H Eos # (Auto) 100 Baso # (Auto) 0 Sodium 135 L Potassium 4.3 Chloride 97 L Carbon Dioxide 36 H BUN 36 H Creatinine 0.90 Estimated GFR > 60.0 BUN/Creatinine Ratio 40.0 H Glucose 108 Calcium 7.7 L Magnesium 2.8 H Total Bilirubin 0.5 AST 109 H ALT 81 H Alkaline Phosphatase 85 Total Protein 6.3 Albumin 2.9 L Globulin 3.4 Albumin/Globulin Ratio 0.9 L Procalcitonin Assessment & Plan Post-op Postoperative Procedures: Procedures Operation Date: 09/10/19 19:00 Actual Procedures Side Surgeon p T7-L2 Posterior Fusion Leodan Marin MD stable after fusion surgery for T10 fracture. [facility] to [facility] from my perspective.
--- NOTE | 2019-09-14 08:50 | CM.DPC ---
Addendum entered by Iliana Garcia LPN 09/14/19 11:20: Dr. Hammond has confirmed pt is stable for d/c to INPT rehab and had discussed same with pt and his . Radha. Met with pt and Radha during this discussion. Radha expresses thankfulness for the assist in getting pt accepted at the INPT rehab. Transport is discussed. Pt is lying flat on his back, is quite weak and is today on chelo lift transfer only with PT/PT set to co-treat prior to d/c as their schedule allows. Dr. Hammond states that pt should go via ambulance transport as he cannot currently tolerate upright w/c transport. Radha is aware that a guarantee of payment cannot be given by this d/c city planner but she says she is accepting of the risk as her cannot tolerate any other option. She states to proceed. Cert of Med Necessity BLS transport is completed now and signed by Dr. Hammond. Copy to scanning. Original to Ambulance crew. Transport time 1240. Radha later expresses her concern re pt's ongoing complaints of pain. Confirmed with RN Shelly and Dr. Hammond that pt is only on oral medications for pain and no narcotics due to the ileus. She wonders if she should appeal the d/c as it would give him one more day here. Dr. Hammond is updated and will speak further with Radha re the pain issue and overall medical stability indicating need to transition to the next level of care. At this point all is set for INPT at [facility]. Will follow until pt leaves. Will fax d/c summary and orders. Original Note: DCP: continued: Orthopedic team has now signed off on pt as he is ready for a d/c to appropriate setting from orthopedic standpoint. [facility] INPT rehab has accepted pt as long as he can tolerate the total 3 hours therapy spread through out the day. Spoke with JOSE DE JESUS Clements who will see pt today and agrees this seems appropriate plan. Pt was unable to work much with therapy yesterday as he was stooling through the day. P: discuss in Team Rounds and follow accordingly.
[2019-09-14] MEDS: AMIODARONE 200 MG TABLET PO (10:07)
[2019-09-14] MEDS: lisinopriL 5 MG TABLET PO (10:07)
[2019-09-14] MEDS: NYSTATIN POWDER 15GM 1 APPLIC TOP (10:08)
[2019-09-14] MEDS: METOPROLOL ER 50 MG TABLET PO (10:08)
[2019-09-14] MEDS: ATORVASTATIN 20 MG TABLET PO (10:09)
[2019-09-14] MEDS: CELECOXIB 200 MG CAPSULE PO (10:09)
[2019-09-14] MEDS: SODIUM CHLORIDE 0.9% FLUSH 10 ML IV (10:10)
[2019-09-14] MEDS: ACETAMINOPHEN 325 MG TABLET 650 MG PO (10:13)
--- NOTE | 2019-09-14 10:42 | P.DS_ITS ---
History of Present Illness History of Present Illness Chief complaint: Back Pain/Abd Pain Narrative: This is an 84-year-old gentleman with a history of multiple compression fractures in the past. He had a kyphoplasty done by Dr. Marin about 5 years ago. He has also had additional kyphoplasties which were done in [place]. He was getting a DEXA scan on when E felt a pop in his back and developed fairly severe low back and mid thoracic back pain. He notes ongoing significant pain and he has had progressive problems with constipation since the time of the injury. His notes that he was having difficulty getting around difficulty caring for himself at home and he was brought into the emergency room. He has not had a bowel movement since the time of the DEXA scan. He does have problems with some urinary leakage and does not note significant changes in his urological status. Discharge Providers Provider Date of admission: 09/09/19 09:40 Discharge Date: 09/14/19 Primary care physician: Arias Chinchilla MD Consults: 09/09/19 04:25 Consult to Physician Routine Comment: Consulting Provider: Clair Ivy Reason for consultation: T10 compression fracture Has provider been notified: Yes 09/11/19 01:54 Consult to Discharge Planning Routine Comment: Consult to Occupational Therapy Evaluate & Treat Comment: Physician Instructions: Evaluate and treat Consult to Physical Therapy Evaluate & Treat Comment: use TLSO when out of bed Physician Instructions: Evaluate and Treat Discharge provider: Josué Hammond MD Summary Hospital Course Discharge Diagnosis: 1. Acute T10 unstable vertebral fracture 2. Acute ileus, present on admission 3. Catheter associated UTI with Proteus bacteria, completed treatment 4. Possible acute kidney injury, resolved 5. Acute hypoxemic respiratory failure secondary to fluid overload, resolved 6. COPD and restrictive lung disease 7. Paroxysmal atrial fibrillation 8. Chronic anticoagulation with Xarelto Procedure 09/11/2019: Clinician: Dr. Leodan Marin T7 through L2 posterior instrumentation Open reduction of T10 fracture T9 through 11 posterior fusion Iliac crest bone graft aspirate Hospital Course: 1. 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 Active. -Patient presented with progressive worsening back pain without significant trauma other than he slid recently from the bed to the floor several days before admission. -CT abdomen and pelvis without contrast demonstrated suspect acute fracture of T10. There is prevertebral soft tissue stranding in the level of aortic hiatus. A small amount of fluid in the area is most likely a hematoma. -CT thoracic spine without contrast demonstrated age indeterminate irregular fracture involving the T10 vertebral body with associated anterior vertebral widening without significant retropulsion. No additional acute fractures are appreciated. Vertebral plasty/kyphoplasty changes are present at multiple levels involving the thoracic and lumbar spine. -Prior history of compression fractures status post kyphoplasties at T12, L1 and L5. -Continue pain management with: Acetaminophen and tramadol -Consulted orthopedic surgery, Dr. Marin, who performed T7 through L2 posterior instrumentation, open reduction of T10 fracture, T9 through 11 poste rior fusion, and Iliac crest bone graft aspirate -patient is currently Anny lift, back brace when up out of bed, except can removed back brace while sitting in chair 2. Acute ileus, present on admission. Resolved. -Patient described abdominal pain for 1 week with increasing distention and no bowel movement or flatus. -Repeat abdominal series demonstrated non-obstructive bowel gas pattern and m oderate amount of stool in colon consistent with possible ileus. -CT of the abdomen pelvis finds no evidence of bowel obstruction, no cholelithiasis with no basilia cholestatic inflammation, known renal calculi or hydronephrosis, no obstructing stone, several punctate layering stones in the urinary bladder. Large stool burden. -Continue bowel regimen with Colace 100 mg twice daily, polyethylene glycol 17 g daily, bisacodyl 10 mg suppository and/or mineral oil enema as needed for constipation. -Performed small-bowel follow-through which did not demonstrate SBO and was therapeutic and ileus resolved. 3. Possible Proteus UTI, present on admission. Active. -Patient complained of brief dysuria but has Miguel catheter in place. Patient also had intermittent confusion, now resolved, likely related to narcotic administration but possibly due to UTI. -Initial WBC 18.8 and trended down to 15.1. Procalcitonin has been less than 0.5. Patient has been afebrile. -Patient received Ancef intraoperatively and and ceftriaxone 2 g IV daily x5 days for UTI. -mildly elevated WBC likely response to surgery and not indicating current active infection -repeat CBC in 1 week if no fever 4. Possible ESDRAS on chronic kidney disease stage 3, present on admission. Possible ESDRAS resolved. -Secondary to decreased PO intake, severe constipation, and UTI. -Initial creatinine 1.4. Unclear baseline creatinine and seems variable. Creatinine now down to 1.10. -Continue to avoid nephrotoxic agents and optimize renal perfusion. -discontinued Celebrex 5. Acute hypoxemic respiratory failure, secondary to fluid overload, not present on admission. Resolved. -Patient received IV fluids at 125 mL/hr for several hours which has been discontinued. Patient has a history of systolic CHF which resolved with medical management on last echo 05/2019. -Chest x-ray demonstrated mild pulmonary edema. -Ordered furosemide 40 mg IV x1 with 900 cc urine output. Plan to continue to reassess need for diuresis. -Continue supplemental oxygen as necessary to maintain oxygen saturations 88- 92%. Patient no longer requiring oxygen. He does occasionally desaturate while sleeping and may use oxygen as necessary. 6. COPD and restrictive lung disease, present on admission. Stable. -lungs clear on exam today -Does not represent acute COPD exacerbation. Patient tachypneic on arrival at 22 breaths per minute saturating 92% on room air. Patient is nonsmoker. Patient had scattered bilateral wheezing on exam with SpO2 dropping to 90 % on room air. -Previous pulmonary function test to 01/05/2020 due to wheezing with findings of moderate obstructive airway disease, severe restriction of the parenchyma, moderate to severe diffusion deficit. -Continue respiratory therapy evaluation and treatment. Continue supplemental oxygen to maintain oxygen saturation 88-92%. Patient no longer requiring oxygen. Continue DuoNebs every 4 hours as needed. 7. Paroxysmal atrial fibrillation, chronic, present on admission. Stable. -Now in sinus rhythm with controlled rate. -No complaints of chest pain. -resumed Xarelto as of 09/15/2019 -Continue home metoprolol succinate 50 mg daily and amiodarone 200 mg daily. 8. Hypertension, chronic, present on admission. Stable. -stable back on home routine 9. Hyperlipidemia, chronic, stable. -Continue home atorvastatin 20 mg daily. 10. Mild transaminitis -patient with mildly elevated LFTs for the last couple of days, likely medication related, possibly the Celebrex which has been discontinued -recommend repeat LFTs in 1 week Code status: Full code VTE prophylaxis: SCDs, patient is on Xarelto. Patient is being discharged to inpatient acute care rehab at [facility] in [place]. Status at Discharge Cognitive/behavioral status at discharge: oriented Functional status at discharge: bed bound Time Spent with Patient Time spent: Greater than 30 minutes Exam Vital Signs (past 8 hours): - 09/14/19 04:01 09/14/19 06:30 09/14/19 09:10 Temperature 97.3 F L 98.3 F Pulse Rate 61 63 Respiratory Rate 16 18 Blood Pressure 112/60 121/63 Pulse Oximetry 96 94 98 09/14/19 10:07 09/14/19 10:08 Temperature Pulse Rate Respiratory Rate Blood Pressure 121/63 121/63 Pulse Oximetry Oxygen Delivery Method Nasal Cannula Oxygen Flow Rate 0 Objective Labs Result Diagrams: 09/14/19 05:15 09/14/19 05:15 Labs: Laboratory Results - last 24 hr 09/14/19 09/14/19 05:15 05:15 WBC 15.1 H RBC 3.54 L Hgb 11.0 L Hct 33.8 L MCV 95.6 MCH 31.0 MCHC 32.4 RDW 14.1 Plt Count 205 Neut % (Auto) 84.0 H Lymph % (Auto) 4.9 L [place] % (Auto) 10.6 Eos % (Auto) 0.4 L Baso % (Auto) 0.1 Neut # (Auto) 10198 H Lymph # (Auto) 700 L [place] # (Auto) 1600 H Eos # (Auto) 100 Baso # (Auto) 0 Sodium 135 L Potassium 4.3 Chloride 97 L Carbon Dioxide 36 H BUN 36 H Creatinine 0.90 Estimated GFR > 60.0 BUN/Creatinine Ratio 40.0 H Glucose 108 Calcium 7.7 L Magnesium 2.8 H Total Bilirubin 0.5 AST 109 H ALT 81 H Alkaline Phosphatase 85 Total Protein 6.3 Albumin 2.9 L Globulin 3.4 Albumin/Globulin Ratio 0.9 L Discharge Plan Discharge Plan Patient Disposition: Released, Other Other facility: [facility] Consult as needed: Dental, Hearing, Mental health, Podiatry and Vision Discharge orders & Medications Discharge Orders: Discharge (Order); Ordered 09/14/19 Ordered By: Josué Hammond Prescriptions: New tramadol 50 mg Tablet 50 mg PO Q4H PRN (Reason: Pain, Moderate (4-6)) Qty: 30 RF: 0 sennosides [senna] 8.6 mg Tablet 17.2 mg PO BEDTIME Qty: 30 RF: 0 acetaminophen 325 mg Tablet 650 mg PO Q6HR PRN (Reason: Pain, Mild (1-3)) Qty: 30 RF: 0 polyethylene glycol 3350 17 gram Powder In Packet 17 gm PO DAILY Qty: 30 RF: 0 ipratropium-albuterol 0.5 mg-3 mg(2.5 mg base)/3 mL Solution For Nebulization 3 ml INH [id number] PRN (Reason: Shortness Of Breath Or Wheezing) Qty: 30 RF: 0 Continued atorvastatin 20 mg Tablet 20 mg PO DAILY RF: 0 amiodarone 200 mg Tablet 200 mg PO DAILY RF: 0 metoprolol succinate 50 mg Tablet Extended Release 24 Hr 50 mg PO DAILY RF: 0 lisinopril 5 mg Tablet 5 mg PO DAILY RF: 0 Xarelto 20 mg Tablet 20 mg PO DAILY RF: 0 Follow up/Referrals: Arias Chinchilla MD [Primary Care Provider] - Discharge Health Status Multidrug resistant organism: No MDRO Precautions: [place] Diet/Activity/Treatments Diet: Diet as Tolerated Liquid consistency: Normal/Thin Food texture: Regular [facility] Reason for rehabilitation: Post-operative therapy Rehab type: Physical therapy and Occupational therapy Visit Report/Discharge Packet Instructions: Polysomnography Discharge Data Primary Care Provider: Arias Chinchilla
--- NOTE | 2019-09-14 11:35 | OT.IPNOTE ---
Attempted to see pt for OT treatment with PT, pt satmichelle would rather save his energy for the trip to rehab as being discharged today. Able to help reposition pt in bed with PT. NO charge.
--- NOTE | 2019-09-14 12:11 | PC.NURSE ---
Dressing to back removed and replaced by 2 Coversites. [place] intact and without drainage. Pt brief changed and Pt is ready for transfer to SNF. Back brace to be sent with Pt. Tramadol given for pain per Dr. Hammond order. Spouse at the bedside. Report called to [facility]. and all questions answered.
--- NOTE | 2019-09-14 12:54 | PT-IP ANOTE ---
Checked on patient. By request of pt and recommending no PT as he is being transferred to a SNF early this pm. Assisted pt with repositioning in the bed with OT.
--- NOTE | 2019-09-14 12:57 | PC.NURSE ---
Pt out via stretcher by transport personnel with Spouse and all belongings.
== END 2019-09-14 12:58 | DRG 456 ==
LOC: ED 23:45 → AC 09-09 03:32
PROVIDERS: Internal Medicine; Orthopaedic Surgery; Admitting Provider Nurse Practitioner Adult Health; Emergency Provider Emergency Medicine; PCP Internal Medicine; Visit Provider Nurse Practitioner Adult Health
DX: M48.54XA Collapsed vertebra, not elsewhere classified, thoracic region, initial encounter for fracture (principal); J96.01 Acute respiratory failure with hypoxia; N39.0 Urinary tract infection, site not specified; T83.511A Infection and inflammatory reaction due to indwelling urethral catheter, initial encounter; K56.7 Ileus, unspecified; N17.9 Acute kidney failure, unspecified; I48.0 Paroxysmal atrial fibrillation; Z79.01 Long term (current) use of anticoagulants; J44.9 Chronic obstructive pulmonary disease, unspecified; I12.9 Hypertensive chronic kidney disease with stage 1 through stage 4 chronic kidney disease, or unspecified chronic kidney disease; N18.3 Chronic kidney disease, stage 3 (moderate); M45.4 Ankylosing spondylitis of thoracic region; M81.0 Age-related osteoporosis without current pathological fracture; E87.70 Fluid overload, unspecified; B96.4 Proteus (mirabilis) (morganii) as the cause of diseases classified elsewhere; R41.0 Disorientation, unspecified; I25.10 Atherosclerotic heart disease of native coronary artery without angina pectoris; E78.5 Hyperlipidemia, unspecified; Z95.0 Presence of cardiac pacemaker
CPT/HCPCS: 36415; 71045; 72072; 72082; 72128; 74018; 74022; 74176; 74248; 76000; 80048; 80053; 81001; 82962; 83690; 83735; 83880; 84145; 84484; 85025; 87077; 87086; 87186; 87633; 94640; 94760; 94762; 96361; 96374; 96375; 97161; 97164; 97165; 97530; 99285; C1776; G0378; C9290; J0330; J0690; J0696; J1100; J1170; J1940; J2405; J2704; J3010; J7613